=== PATIENT | male | born 1935 | race Caucasian/White ===

== ENCOUNTER → 2017-08-22 08:07 | Day surgery (SDC) | payer BC, MEDICARE ==
--- NOTE | 2017-08-09 21:04 | HP ---
CC: Dr. Patience Rasmussen; [facility] * ADMISSION HISTORY AND PHYSICAL: DATE OF ADMISSION: 08/22/17 ATTENDING SURGEON: Dr. Silverio Muniz * (DICTATED BY DANYEL HYATT) CHIEF COMPLAINT: Right inguinal hernia. HISTORY OF PRESENT ILLNESS: This is an 81, soon to be 82-year-old male, who in the past 3 months or so has noticed development of a right groin bulge. The patient states that he occasionally has some discomfort that radiates into the right scrotum. He does have chronic low back pain, which radiates into both groins and into lower extremities. An ultrasound had been performed, which showed bilateral inguinal hernias. He has not had any symptoms to suggest incarceration or strangulation. He was seen in the office by Dr. Muniz on 07/13/17, at which time exam showed a moderately sized tender, but reducible right inguinal hernia. There was a very small nontender and easily reducible left inguinal hernia. There were no testicular masses. The patient has also completed recent medical evaluation including echo and EKG (see attached from David Linton NP). The patient understands the recommendations, the indications for surgery, the risks, benefits and alternatives as well as the expected perioperative course. He would like to proceed as scheduled with open repair of right inguinal hernia with mesh. PAST MEDICAL HISTORY: 1. Chronic low back pain (degenerative disk disease). 2. Hypertension. 3. Type 2 diabetes. 4. Obesity. 5. Xpxo-rm-yzjndgom aortic stenosis. 6. Occasional tachyarrhythmia. 7. Bilateral knee pain. PREVIOUS SURGERY: Tonsillectomy remotely. CURRENT MEDICATIONS: 1. Metformin 500 mg daily. 2. Lisinopril 10 mg daily. 3. Ibuprofen 800 mg t.i.d. 4. Aspirin 81 mg p.r.n. tachyarrhythmia. 5. Glipizide extended release 10 mg daily. 6. Metoprolol extended release 25 mg daily. 7. Voltaren 1% topically daily p.r.n. for knee pain. DRUG ALLERGIES: None known. FAMILY HISTORY: Negative for anesthesia problems, bleeding or clotting disorders. SOCIAL HISTORY: The patient is . He is a retired school social worker. He smokes 1 to 2 cigars per day. He denies use of cigarettes. He drinks less than 1 drink per week. REVIEW OF SYSTEMS: General: No recent constitutional symptoms or acute illnesses other than described above. Cardiovascular: No history of chest pain , palpitations, OR, or angina. He was found recently to have a new murmur and recent echo shows aztp-bu-fxnwdgfh aortic stenosis. He is otherwise asymptomatic, see attached from David Linton. Respiratory: No chronic cough or shortness of breath. GI: No problems reported. : No problems reported other than erectile dysfunction. Endocrine: He is treated for type 2 diabetes. He states his most recent A1c was over 8 and metformin was recently added to his regimen. He does not do fingersticks. PHYSICAL EXAMINATION GENERAL: Well-nourished, obese male, in no acute distress. VITAL SIGNS: Height 5 feet 8 inches, weight 225 pounds, BMI 36.6, blood pressure 128/70, pulse 78, respirations 18. HEENT: Pupils equal, round, and reactive. EOMs intact. No conjunctival pallor. Oropharynx: Teeth in good repair. No intraoral lesions. NECK: No lymphadenopathy, thyromegaly, or masses. LUNGS: Clear to auscultation. No rales or wheezes. HEART: Regular rate and rhythm. There is a systolic murmur heard best in the right sternal border. ABDOMEN: Obese, soft, nontender to palpation. No palpable masses or organomegaly with the exception of the aforementioned hernias. GENITALIA: Not examined today. RECTAL: Not examined today. BACK: No spinous process or CVA tenderness. EXTREMITIES: No edema. NEUROLOGIC: Grossly intact. SKIN: Warm and dry. No suspicious rashes or lesions. IMPRESSION: Right inguinal hernia. PLAN: Open repair of right inguinal hernia with mesh. DANYEL HYATT [id number]/[facility] #: [id number] GENEVA
[~2017-08-22 08:07] MED LIST: Buffered Lidocaine 0.9% SYRIN* 5 ML/SYR SYRINGE INTRADERM ONE; Buffered Lidocaine 0.9% SYRIN* 5 ML/SYR SYRINGE ONE; ceFAZolin 2 GM PREMIX (*) 2 GM/50 ML BAG IVPB ONE
[2017-08-22 08:45] VITALS: BP 94/65
--- NOTE | 2017-08-22 18:37 | CONS ---
CC: MICHELLE El* [facility] MEDICINE CONSULTATION REPORT: DATE OF CONSULT: 08/22/17 PRIMARY CARE PROVIDER: MICHELLE El ATTENDING PHYSICIAN: Dr. Muniz. CONSULTING PHYSICIAN: Dr. Negro Stewart (dictation provided by Thao Miller NP) REASON FOR CONSULT: Supraventricular tachycardia in the immediate preoperative period. HISTORY OF PRESENT ILLNESS: Mr. Barakat is an 82-year-old male with a past medical history of diabetes, intermittent tachyarrhythmia, hypertension, and mild-to- moderate aortic stenosis, who presented to the hospital today for planned right inguinal hernia repair with Dr. Muniz. Please see the dictated H and P from Dr. Muniz for complete details. In brief, the patient reported that he had discomfort in the right groin and ultrasound showed bilateral inguinal hernias. The patient completed preoperative evaluation by nurse practitioner, David Linton, including an echocardiogram and EKG. Echocardiogram showed that the patient had new qidm-nh-hudztmob aortic stenosis, but otherwise his echo was unchanged and that he had an intact ejection fraction with no significant wall motion abnormalities. EKG showed a left bundle branch block, which was unchanged. Mr. Barakat states that last night, he was under stress and worried about going to surgery. He went out and had beer and pizza and then felt well thereafter. Today, he was not able to do his normal routine of having breakfast. He did take his metoprolol. His reports that they almost got into a car accident on the way into the hospital and therefore the patient arrived very stressed and hungry. He was found to be in tachyarrhythmia with a heart rate into the 150s. The patient states that this happens to him from whdp-la-wpir at home approximately once per month and that what he will do normally is drink some cold water and it will pass after about 30 minutes. He associates these previous episodes with stress. However, I will note that the patient states that he did not feel his heart rate was rapid and this was only found when he was attached to the telemetry monitors. It is likely based on this description that he is not aware of his arrhythmias. Hospital Medicine was asked to see the patient in consultation. By the time I came to see the patient, the patient's heart rate had spontaneously converted back down into the 70s with a sinus rhythm. PAST MEDICAL HISTORY: 1. Occasional tachyarrhythmia. 2. Chronic low back pain. 3. Hypertension. 4. Type 2 diabetes. 5. Obesity. 6. Dibx-nw-jbrbzjoz aortic stenosis. 7. Bilateral knee pain. PAST SURGICAL HISTORY: Tonsillectomy. MEDICATIONS: 1. Metformin 500 mg p.o. daily. 2. Lisinopril 10 mg p.o. daily. 3. Ibuprofen 800 mg p.o. t.i.d. 4. Aspirin 81 mg p.r.n. 5. Glipizide 10 mg p.o. daily. 6. Metoprolol ER 25 mg daily. 7. Voltaren 1% topically daily p.r.n. for knee pain. ALLERGIES: No known drug allergies. FAMILY HISTORY: Reviewed and noncontributory. SOCIAL HISTORY: The patient is . He is a retired sanitation worker. He smokes 1 to 2 cigars per day. He does not smoke cigarettes. He drinks about 1 drink per week. States he drank beer last night. His is the healthcare proxy. REVIEW OF SYSTEMS: A 14-point review of systems was completed with Mr. Barakat and all those not mentioned above were negative. PHYSICAL EXAM: Vital Signs: The patient's heart rate 170, blood pressure 97/48 , respiratory rate 18, O2 saturation 98% on room air. General: Mr. Barakat is sitting up in the bed. He is in no acute distress. Neuro: He is alert. He is oriented x3. He moves all extremities equally. There is no facial asymmetry or focal weakness. Extraocular movements are intact. Heart: S1, S2 with mild systolic murmur at the sternal border. Lungs are clear to auscultation bilaterally with no accessory muscle use and good aeration. Abdomen is soft and nontender with bowel sounds positive x4. Extremities: No cyanosis or edema. Skin is intact. DIAGNOSTIC STUDIES/LAB DATA: Preoperatively WBC 5.2, hemoglobin 14.6, hematocrit 43, platelet count 175. Sodium 138, potassium 4.1, chloride 105, serum bicarbonate 27, BUN 19, creatinine 0.85, and glucose 154. EKG shows left bundle branch block with a heart rate about 140. On my arrival, the patient is back into sinus rhythm with the left bundle branch block with heart rate about 70. ASSESSMENT AND PLAN: Mr. Barakat is an 82-year-old male with past medical history of known tachyarrhythmia, exzg-wr-zeclvvzi aortic stenosis, hypertension , diabetes, who presents today to the hospital for an elective repair of right inguinal hernia, found to be in supraventricular tachycardia with heart rate of about 150 on arrival. Our recommendations are as follows: 1. Supraventricular tachycardia: It is clear from the patient's description that he is not aware of his rapid heart rate at times as evidenced by the fact that he did not know that today when he arrived. He thinks he goes into this rhythm about once per month. I think the patient would benefit greatly from a loop recorder to monitor his heart rhythm and to add and adjust any medications as possible to help control the rhythm, both for his long-term health and also, so that he can proceed with his inguinal hernia repair in the future. He has no evidence of atrial fibrillation that I have seen, therefore anticoagulation is not indicated. I considered increasing his metoprolol but his blood pressure is running systolically in the 90s and I think that any adjustment to medication will have to be in consultation with Cardiology and review of any further outpatient monitoring. 2. Diabetes. Continue home medication. 3. Right inguinal hernia repair. Spoke with Dr. Muniz and the patient's surgery is postponed. 4. Hypertension. Continue metoprolol and lisinopril. 5. Code status is full code. 6. Disposition: To home. TIME SPENT: Approximately 40 minutes was spent in the consultation of this patient with more than half the time was spent with the patient at the bedside reviewing the events leading up to this hospitalization, performing the physical examination, and reviewing the plan of care. THAO MILLER NP [id number]/[facility] #: [id number] GENEVA
== END | disposition home or self-care (01) ==
LOC: OR 08:07
PROVIDERS: ATTEND Surgery
DX: K40.90 Unilateral inguinal hernia, without obstruction or gangrene, not specified as recurrent (principal); I47.1 Supraventricular tachycardia; Z53.09 Procedure and treatment not carried out because of other contraindication; E11.9 Type 2 diabetes mellitus without complications; Z79.84 Long term (current) use of oral hypoglycemic drugs; F17.290 Nicotine dependence, other tobacco product, uncomplicated; I10 Essential (primary) hypertension; I35.0 Nonrheumatic aortic (valve) stenosis
CPT/HCPCS: 93005; J0690

== ENCOUNTER 2018-06-24 08:30 | Inpatient (IN) | payer MEDICARE, BC ==
--- NOTE | 2018-06-24 09:06 | ED ---
Abdominal Pain/Male - HPI Summary HPI Summary: This patient is a 82 year old M presenting to [facility] accompanied by accompanied by his with a chief complaint of left sided abdominal pain radiating to left flank since 06/22/18 with no BM. Patient was sent here by PCP for further work-up. Upon arrival patient was found to be in SVT. Patient denies current symptoms, other than feeling generally unwell. reports a history of a similar rhythm. She states he was meant to have surgery for a hernia repair in [place] but he was found in a similar rhythm prior to surgery. Patient was recently evaluated by Dr. Granados, kd recommended cardiac ablation; however he has not had one yet. Denies current vomiting. 81mg of ASA daily. PMHx of hernias and NIDDM. Denies PMHx of CHF and ME. - History of Current Complaint Chief Complaint: EDAbdPain Stated Complaint: ABD PAIN Hx Obtained From: Patient Onset/Duration: Lasting Days Timing: Constant Severity Currently: Severe Pain Intensity: 10 Pain Scale Used: 0-10 Numeric Location: Other - left sided Radiates: Yes Associated Signs And Symptoms: Positive: Constipation, Other - SVT. Negative: Chest Pain, Vomiting - Allergies/Home Medications Allergies/Adverse Reactions: Allergies Allergy/AdvReac Type Severity Reaction Status Date / Time No Known Allergies Allergy Verified 06/24/18 08:32 Home Medications: Home Medications Aspirin 81 mg CHEW TAB* 81 mg PO DAILY 06/24/18 [History Confirmed 06/24/18] PMH/Surg Hx/FS Hx/Imm Hx Endocrine/Hematology History: Reports: Hx Diabetes - type2 Cardiovascular History: Reports: Hx Hypertension - metoprolol and 10mg of lisinopril Denies: Hx Pacemaker/ICD History: Denies: Hx Renal Disease Sensory History: Reports: Hx Contacts or Glasses Denies: Hx Hearing Aid Opthamlomology History: Reports: Hx Contacts or Glasses Psychiatric History: Denies: Hx Panic Disorder - Surgical History Surgery Procedure, Year, and Place: TONSILS as a child Hx Anesthesia Reactions: No Infectious Disease History: No Infectious Disease History: Denies: Traveled Outside the [place] in Last 30 Days - Family History Known Family History: Positive: Hypertension - Social History Alcohol Use: Rare Substance Use Type: Reports: None Smoking Status (MU): Current Some Day Smoker Amount Used/How Often: smoke cigars - doesn't inhale just puffs,1 a day, smoked them for 65 years Have You Smoked in the Last Year: Yes Review of Systems Negative: Chest Pain Negative: Shortness Of Breath Positive: Abdominal Pain, Other - constipation. Negative: Vomiting All Other Systems Reviewed And Are Negative: Yes Physical Exam - Summary Physical Exam Summary: GENERAL: Patient is a well developed and nourished male who is lying comfortable in the stretcher. Patient is not in any acute respiratory distress. HEAD AND FACE: Normocephalic EYES: PERRLA, EOMI x 2. EARS: Hearing grossly intact. MOUTH: Oropharynx within normal limits. NECK: Supple, trachea is midline, no adenopathy, no JVD, no carotid bruit. CHEST: Symmetric, diffuse tenderness at palpation worse over epigastric area LUNGS: Clear to auscultation bilaterally. No wheezing or crackles. CVS: Tachycardic rate and regular rhythm, S1 and S2 present, no murmurs or gallops appreciated. ABDOMEN: Soft, diffuse epigastric tenderness. Bowel sounds are normal. No abdominal abnormal pulsations. EXTREMITIES: Full ROM in all major joints, no edema, no cyanosis or clubbing. NEURO: Alert and oriented x 3. No acute neurological deficits. Speech is normal and follows commands. SKIN: Dry and warm Triage Information Reviewed: Yes Vital Signs On Initial Exam: Initial Vitals Temp Pulse Resp BP Pulse Ox 97.1 F 65 22 92/58 98 06/24/18 08:32 06/24/18 08:32 06/24/18 08:32 06/24/18 08:32 06/24/18 08:32 Vital Signs Reviewed: Yes Diagnostics - Vital Signs Vital Signs Temp Pulse Resp BP Pulse Ox 06/24/18 08:32 97.1 F 65 22 92/58 98 - Laboratory Result Diagrams: 06/25/18 05:13 06/25/18 05:14 Lab Statement: Any lab studies that have been ordered have been reviewed, and results considered in the medical decision making process. - Radiology CXR Radiology Interpretation Completed By: Radiologist - #. Minimal linear atelectasis at the LEFT lung base. The lungs and pleural spaces are otherwise grossly clear. #. The heart, pulmonary vasculature, and mediastinal contours are unremarkable accounting for supine technique. ED Physician has reviewed this report. - CT A/P CT Interpretation Completed By: Radiologist - #. Mild inflammatory change at the tail the pancreas; correlate with clinical and laboratory assessment for acute pancreatitis. #. Mild colonic diverticulosis without findings of acute diverticulitis. #. Normal appendix documented. #. Moderate size bilateral small bowel containing direct inguinal hernias ED Physician has reviewed this report. - EKG 0902 Cardiac Rate: Tachycardia - 166 BPM EKG Rhythm: SVT EKG Interpretation: LBBB, which is old 1003 Cardiac Rate: Tachycardia - 105 BPM EKG Rhythm: Sinus Tachycardia EKG Interpretation: repeated after 6 of adenosine, old LBB 1158 Cardiac Rate: NL - 66 BPM EKG Rhythm: Sinus Rhythm EKG Interpretation: LBBB Abdominal Pain Fem Course/Dx - Course Course Of Treatment: 82 year old M presenting to [facility] accompanied by accompanied by his with a chief complaint of left sided abdominal pain radiating to left flank since 06/22/18 with no BM. Upon arrival patient was found to be in SVT. Patient denies current symptoms, other than feeling generally unwell. reports a history of a similar rhythm. First EKG reveals SVT at a rate of 166BPM. Dr. Granados was paged and will come to the ED. Patient was given 6mg of adenosine. Second EKG reveals tachycardia at a rate of 106 BPM , after adenosine was administered. Patient developed chest pain at 11:57; a third EKG was done revealing sinus rhythm of 66BPM. All EKGs reveal LBBB which is seen on prior EKGs. Patient is given 10mg of Cardizem, Fentanyl, Magnesium Sulfate, Versed, and 2L of fluids. Bloodwork is unremarkable. CXR reveals, " # . Minimal linear atelectasis at the LEFT lung base. The lungs and pleural spaces are otherwise grossly clear. #. The heart, pulmonary vasculature, and mediastinal contours are unremarkable accounting for supine technique.". A CT A /P reveals, "#. Mild inflammatory change at the tail the pancreas; correlate with clinical and laboratory assessment for acute pancreatitis. #. Mild colonic diverticulosis without findings of acute diverticulitis. #. Normal appendix documented. #. Moderate size bilateral small bowel containing direct inguinal hernias ". Case discussed with hospitalist; Dr. Austin, hospitalist, who accepts patient fo radmission at 1332. I discussed results with patient. The patient agrees with this plan. - Diagnoses Provider Diagnoses: SVT (supraventricular tachycardia), Abdominal pain - Provider Notifications Discussed Care Of Patient With: Kiara Granados - cariology Time Discussed With Above Provider: 09:25 Instructed by Provider To: Will See In ED - Critical Care Time Critical Care Time: 75-104 min Discharge - Sign-Out/Discharge Documenting (check all that apply): Patient Departure - admit - Discharge Plan Condition: Stable Disposition: ADMITTED TO [facility] - Billing Disposition and Condition Condition: STABLE Disposition: Admitted to [facility] - Attestation Statements Document Initiated by Scribe: Yes Documenting Scribe: Corinna Graham Provider For Whom Gianfrancoibe is Documenting (Include Credential): Jens Emerson MD Scribe Attestation: Corinna Garcia, scribed for Jens Emerson MD on 06/25/18 at 1126. Scribe Documentation Reviewed: Yes Provider Attestation: The documentation as recorded by the gianfrancoibeCorinna accurately reflects the service I personally performed and the decisions made by Jens kunz MD
[2018-06-24] MEDS ORDERED: Diltiazem IV* 5 MG/ML 5 ML VIAL (for loading dose/IV Push) (25 MG) ONE (09:21)
[2018-06-24] MEDS ORDERED: Midazolam* 1 MG/ML 5 ML VIAL (5 MG) ONE (09:38)
[2018-06-24] MEDS ORDERED: fentaNYL* 50 MCG/ML 2 ML VIAL (100 MCG VIAL) ONE (09:38)
[2018-06-24 09:45] LABS: ABS Basophils 0 10^3/ul (0-0.2); ABS Eosinophils 0.2 10^3/ul (0-0.6); ABS Lymphocytes 2.6 10^3/ul (1.0-4.8); ABS Monocytes 1.2 10^3/ul (0-0.8); ABS Neutrophils 6.5 10^3/ul (1.5-7.7); ABS Nucleated RBC 0 10^3/ul; Eosinophil % 1.6 % (0-6); Hematocrit 44 % (42-52); Hemoglobin 14.8 g/dl (14.0-18.0); Lymphocyte % 24.9 % (25-47); Mean Corpuscular HGB Conc 34 g/dl (31-36); Mean Corpuscular Hemoglobin 31 pg (27-31); Mean Corpuscular Volume 90 fL (80-94); Mean Platelet Volume 8.8 um3 (7.4-10.4); Nucleated Red Blood Cells % 0; Platelet Count 212 10^3/ul (150-450); Red Blood Count 4.81 10^6/ul (4.00-5.40); Red Cell Distribution Width 13 % (10.5-15); White Blood Count 10.5 10^3/ul (3.5-10.8)
[2018-06-24 09:54] LABS: INR 1.06 (0.77-1.02)
[2018-06-24] MEDS ORDERED: Adenosine* 3 MG/ML VIAL ONE (09:55)
[2018-06-24] MEDS ORDERED: fentaNYL* 50 MCG/ML 2 ML VIAL (100 MCG VIAL) IV SLOW PU ONE (10:09)
[2018-06-24] MEDS ORDERED: Diltiazem IV VIAL* 5 MG/ML 10 ML VIAL IV SLOW PU ONE (10:09)
[2018-06-24] MEDS ORDERED: Adenosine* 3 MG/ML VIAL IV PUSH ONE (10:09)
[2018-06-24] MEDS ORDERED: Midazolam* 1 MG/ML 5 ML VIAL (5 MG) IV ONE (10:12)
[2018-06-24] MEDS ORDERED: Magnesium Sulfate IV* 2 GM in NS 0.9% 100 ML* 100 ML IV ONE (10:14)
[2018-06-24] MEDS ORDERED: NS 0.9% 1000 ML* 1,000 ML IV ONE (10:15)
--- NOTE | 2018-06-24 10:37 | RAD ---
Indication: Abdominal pain for 3 days. Comparison: April 16, 2008 Technique: Supine AP chest 1020 hours REPORT AND IMPRESSION: #. Minimal linear atelectasis at the LEFT lung base. The lungs and pleural spaces are otherwise grossly clear. #. The heart, pulmonary vasculature, and mediastinal contours are unremarkable accounting for supine technique.
[2018-06-24] MEDS ORDERED: Iodixanol* (CONTRAST) 320 MG/ML 100 ML SDV IV ONE (11:54)
[2018-06-24] MEDS ORDERED: Magnesium Sulfate 2 GM IV* 2 GM/50 ML BAG IVPB ONE (12:00)
--- NOTE | 2018-06-24 13:13 | RAD ---
INDICATION: Abdominal pain. Diabetic. COMPARISON: No relevant prior exams available on the [facility] PACS for comparison. TECHNIQUE: Multidetector CT images were obtained from the lung bases to the ischial tuberosities with 125 mL Visipaque 320 IV contrast. No oral contrast administered. Multiplanar reformation. REPORT: VISUALIZED INFERIOR THORAX: Cardiomegaly and mild bibasilar atelectasis. Negative for pleural effusions. LIVER / GALLBLADDER / PANCREAS / SPLEEN: Decreased density of the liver consistent with fatty infiltration. Negative for focal liver lesions or biliary dilatation. Unremarkable CT appearance of the gallbladder. Moderately atrophic pancreas. Mild peripancreatic edema at the tail. Negative for presence of a loculated peripancreatic fluid collection. Unremarkable spleen. ALIMENTARY TRACT: Negative for CT abnormality of the upper GI, small bowel, or retrocecal appendix. Mild diverticulosis at the descending and sigmoid: Segments without findings of acute diverticulitis. Negative for ascites or free air. Moderate size bilateral small bowel containing direct inguinal hernias without inflammatory change or resulting bowel obstruction. MESENTERIC: Unremarkable. ADRENAL / GENITOURINARY: 1.9 x 2.2 cm RIGHT adrenal nodule measures denser than specific for a benign lipid rich adenoma however presence of IV contrast limits assessment. Unremarkable LEFT adrenal gland. Small cortical cyst at the lower pole of the LEFT kidney. Negative for suspicious renal lesions or hydronephrosis. Symmetric enhancement of the kidneys. Unremarkable nondilated ureters and partially distended urinary bladder. Symmetric seminal vesicles. RETROPERITONEAL: Top normal 1 cm short axis LEFT external iliac lymph node. Negative for lymphadenopathy. VASCULAR: Mild atherosclerotic plaque of normal diameter abdominal aorta and iliac arteries. Physiologic partial distention of the IVC. BONES: Negative for suspicious focal osseous lesions. Polyarticular degenerative arthropathy. SOFT TISSUE: Unremarkable. IMPRESSION: #. Mild inflammatory change at the tail the pancreas; correlate with clinical and laboratory assessment for acute pancreatitis. #. Mild colonic diverticulosis without findings of acute diverticulitis. #. Normal appendix documented. #. Moderate size bilateral small bowel containing direct inguinal hernias without inflammatory change or resulting bowel obstruction. #. 2.2 cm nonspecific RIGHT adrenal nodule for which 3 month follow-up noncontrast CT is suggested for reassessment.
[2018-06-24] MEDS ORDERED: Ondansetron INJ* 2 MG/ML VIAL IV PRN (14:27)
[2018-06-24] MEDS ORDERED: NS 0.9% 1000 ML* 1,000 ML IV SCH (14:45)
[2018-06-24] MEDS ORDERED: Metoprolol Tartrate IV* 1 MG/ML 5 ML VIAL IV PRN (15:11)
[2018-06-24] MEDS: Morphine INJ* 2 MG/ML 1 ML SYRINGE (TWO MG - NEW SYRINGE VERSION) IV PRN (16:30)
[2018-06-24] MEDS: Miconazole TOPICAL CREAM 2%* 30 GM TOPICAL SCH (16:31)
--- NOTE | 2018-06-24 19:40 | HP ---
CC: David Linton NP; Dr. Kiara Granados * ADMISSION HISTORY AND PHYSICAL: DATE OF ADMISSION: 06/24/18. PRIMARY CARE PROVIDER: David Linton NP. MY ATTENDING WHILE IN THE HOSPITAL: Dr. Annia Medina.* (DICTATED BY DANYEL RENTERIA) OUTPATIENT COAL OR ORE CONTROLLER: Dr. Kiara Granados. CHIEF COMPLAINT: Abdominal pain x3 days. HISTORY OF PRESENT ILLNESS: Mr. Barakat is an 82-year-old male with a past medical history significant for paroxysmal SVT; hypertension; diabetes mellitus , type 2; obesity; bilateral direct inguinal hernias, who presents to the emergency department with pain in his lower abdomen, which radiates up to his upper back that has been going on since , night after he ate a large dinner of steak, shrimp, and baked potatoes. The patient has generally poor diet. The patient has never had pain like this before. The patient has not had bowel movements since then. The patient has had no nausea or vomiting, but has had significant gas and has felt that his pain is improved with belching. The patient states the pain was 10/10 at its worse and only diminished to 5/10 after receiving fentanyl in the emergency department. The patient describes the pain as aching. The patient states that it was constant before coming to the emergency department, did not fluctuate except for slight improvements when belching. The patient has not taken anything for it. The patient is a bit opposed to pain medications as he feels that it masks his pain. The patient in the emergency department was found to be in SVT, which he has a known history of. The patient's states that he had been having episodes where he lost his color and felt somewhat off over the past several days, which are consistent with previous times when he has been found to be in SVT. The patient has been able to terminate these by resting and drinking a glass of cold water. The patient denies shortness of breath with these episodes. The patient also has many other episodes of tachycardia that has been discovered when he is entirely asymptomatic. The patient has not had any sick contacts. No recent changes to his medications. No previous blood in his stool. No history of diverticulitis. The patient does not drink alcohol. The patient states that his lipid profiles have generally been good. The patient's denies any urinary symptoms including blood in his urine, pain with urination, frequency of urination, cloudiness of his urine. The patient has no history of kidney stones. The patient does not check his blood sugars and have not for several months due to tenderness in his fingers. The patient has not had any recent changes to his medications. The patient used to taken ibuprofen 800 mg 3 times a day, but stopped approximately 3 months ago. The patient has chronic low back pain with radiation into his legs, which is due to according to the patient spinal stenosis that is tolerable, but consistently there. The patient has had a rash in his groin that developed 3 weeks ago, that has been often responsive to hydrocortisone cream and it is frequently itching. The patient has been previously evaluated by an commercial diver in [place], who recommended an EP evaluation of possible ablation for his SVT, but the patient declined for financial reasons. The patient is noncompliant with his diet and his main priorities in life he states are smoking his cigars and going to the [employer]. The patient in the emergency department was seen in consultation by Dr. Kiara Granados, who performed a chemical cardioversion with diltiazem and adenosine and the patient is maintaining his sinus rhythm at this time. The patient had an episode of chest pain while in the emergency department, which resolved with belching. The patient is maintained on metoprolol. The patient had low magnesium. The patient had a CT scan of his abdomen which showed no gallbladder pathology, however, slight inflammation of the tail of the pancreas and no issues with his inguinal hernias. The patient has an elevated lipase. Due to concern for SVT, pancreatitis and pain, the patient will be admitted to the hospital for observation. PAST MEDICAL HISTORY: SVT, not believed to be atrial fib; low back pain due to spinal stenosis; hypertension; diabetes mellitus, non-insulin dependent; obesity ; aortic stenosis; bilateral direct inguinal hernias. PAST SURGICAL HISTORY: Tonsillectomy. MEDICATIONS: 1. Metformin 500 mg p.o. q.a.m. 2. Lisinopril p.o. daily. 3. Metoprolol succinate 25 mg p.o. q.a.m. 3. Glipizide 10 mg p.o. q.a.m. 4. Aspirin 81 mg p.o. daily. 5. Voltaren gel 1% as needed for knee pain. 6. Multivitamin. 7. Vitamin B12, unknown dose. ALLERGIES: No known drug allergies. FAMILY HISTORY: The patient's mother had history of tachycardia and of complications of CHF. The patient had one sister with liver cancer and another sister with breast and ovarian cancer as well as diabetes. The patient has a brother with atrial fibrillation, pacemaker and hypertension. The patient has a sister with dementia. The patient has two daughters with no health problems. SOCIAL HISTORY: The patient has smoked cigars for 50 years intermittently and states he has not inhaled. The patient smoked briefly cigarettes when he was much younger. The patient does not drink alcohol. The patient never abuse alcohol. The patient denies illicit drug use. The patient used to work for [employer] of 42 years and is now retired. The patient is , lives with his , has 2 daughters. The patient would like his surrogate decision maker to be his , Beatriz Barakat and his daughter, Kait Barakat. REVIEW OF SYSTEMS: A 14-point review of systems was reviewed and negative except as above. PHYSICAL EXAMINATION GENERAL: The patient is an 82-year-old male, who appears stated age and sitting comfortably in bed, in no acute distress. VITAL SIGNS: At the time of evaluation, temperature 97.1, pulse rate 68, respiratory rate 19, blood pressure 124/79. The patient upon arrival to the emergency department had a heart rate of 168. HEENT: Head: Normocephalic, atraumatic. Sclerae anicteric. No conjunctival injection. Nasal mucosa moist. Oral mucosa moist. No pharyngeal erythema, discharge or exudate. NECK: Supple, nontender. No lymphadenopathy. No carotid bruits auscultated. No JVD. RESPIRATORY: Clear to auscultation bilaterally, just slight inspiratory crackles heard at the bilateral lower lobes. Good air exchange bilaterally. CARDIAC: Regular rate and rhythm, grade 3/6 systolic ejection murmur heard best at the right upper sternal border. Pulses are 2+ in bilateral dorsalis pedis, posterior tibialis, and radial areas. No bilateral lower extremity edema noted. ABDOMEN: Soft, tender to palpation in the left lower quadrant as well as in the periumbilical area. Bowel sounds hypoactive of normal quality. Hernias not palpable in the groin. No hepatosplenomegaly. Negative Escalante's sign. No hepatojugular reflux. GENITOURINARY: No suprapubic or CVA tenderness. NEURO: Cranial nerves II through XII are intact. No focal deficits. Alert and oriented x3. PSYCHIATRIC: Pleasant and cooperative. SKIN: The patient has a rash consistent with tinea corporis in his groin with scaling, borders without satellite lesions. The patient has no other rash. DIAGNOSTIC STUDIES/LAB DATA: White blood cell count 10.0, hemoglobin 14.8, hematocrit 44, platelet count 212. INR 1.06, APTT is 32.6. Sodium 134, potassium 4.1, chloride 102, carbon dioxide 23, anion gap 9, BUN 17, creatinine 1.15, glucose 208, lactic acid 1.8, calcium 9.4, magnesium 1.6. Bilirubin 0.7, AST 16, ALT 19, alkaline phosphatase 68. Troponin I 0.01 x2. BNP 79. Total protein 7.0, albumin 4.0, globulin 3.0, lipase 280. TSH 1.51, thyroxine 8.66. Studies done: Electrocardiogram from 06/24/18, shows tachycardia, no P-waves visible, rate of 166, QTc 508, had inconsistent left bundle branch present with peaked T-waves and elevated ST segments with T-wave inversions and depressed ST segments in I and aVL, left axis deviation. Repeat EKG, 1 hour later, shows normal sinus rhythm, similar QRS morphology, P- waves present with borderline TN interval prolongation, QTc of 492, rate of 105. Repeat EKG 2 hours after that shows, normal sinus rhythm consistent QRS morphology, rate of 66, QTc 490 and no other significant changes. That one was associated with chest pain. The patient has a known left bundle branch block. Chest x-ray from 06/24/18, read as minimal atelectasis of the lung base, lungs, and pleural spaces are otherwise grossly clear. Pulmonary vascular and mediastinal contours are unremarkable accounting for supine technique. Abdomen and pelvis CT read as mild inflammatory changes to the tail of pancreas correlate with clinical and laboratory assessment for acute pancreatitis, mild colonic diverticulosis without findings of acute diverticulitis, normal appendix , moderate sized bilateral small-bowel containing direct inguinal hernias without inflammatory change or resulting bowel obstruction, 2.2-cm nonspecific right adrenal nodule for which 3 months followup with noncontrast CT is suggested for reassessment. ASSESSMENT AND PLAN/IMPRESSION: Mr. Barakat is an 82-year-old male with past medical history significant for hypertension, hyperlipidemia, paroxysmal supraventricular tachycardia, aortic stenosis, bilateral inguinal hernias, who presents to the emergency department with 3 days of abdominal pain, intermittent SVT as well as extreme supraventricular tachycardia while in the emergency department with chemical cardioversion. The patient was found to have elevated lipase consistent with pancreatitis likely provoking his supraventricular tachycardia. The patient will be admitted to the hospital for a conservative pancreatitis treatment including pain control, bowel rest and fluids. The patient will be seen in consultation by Cardiology and will be maintained on his home regimen for his supraventricular tachycardia. 1. Mild pancreatitis. The cause of patient's pancreatitis is unknown, however , given temporal relationship with the high-fat meal, it is possibly related to gallstone. The patient has no gallstone visible on his abdomen and pelvis CT nor pericholecystic inflammatory change. The patient will have a gallbladder ultrasound to assess for function and other signs of acute cholecystitis. The patient will have conservative treatment including fluids, pain control and bowel rest. The patient will have lipid profile to assess for hypertriglyceridemia. The patient does not have history of alcohol abuse. The patient will have repeat lipase in the morning. None of the patient's medications are known for causing pancreatitis. The patient if no alternative explanation is found consideration should be made for surgical referral outpatient for cholecystectomy if this is believed to be the cause of the patient's pancreatitis. 2. Supraventricular tachycardia. The patient is currently in normal sinus rhythm. The patient was converted with adenosine. The patient is usually able to convert with vagal maneuvers. The patient will be continued on metoprolol and monitored on telemetry. This has been discussed with Dr. Kiara Granados. The patient will have IV metoprolol available for tachycardia. The patient will have troponins cycled and a repeat EKG in the morning. The patient's left bundle-branch block is new. The patient does not have any issues with cardiac sounding chest pain. The patient should followup with outpatient commercial diver for a possible EP as well as with Dr. Granados for consideration for antiarrhythmic medication, which may also be considered inpatient if the patient has uncontrollable supraventricular tachycardia. 3. Diabetes mellitus. The patient will be continued on his metformin as well at an increased dose as he refuses to have fingersticks while in the hospital. The patient will not be continued on his glipizide due to n.p.o. state and risk for hyperglycemia. 4. Hypertension. The patient will be continued on lisinopril and metoprolol. The patient is currently normotensive. 5. Low back pain. The patient will have pain control with morphine and oxycodone for his back pain as well as his abdominal pain. 6. Bilateral inguinal hernias. This should be followed outpatient. CT scan shows no inflammatory change or blockage. 7. DVT prophylaxis. The patient will have heparin subcu and will be encouraged to ambulate frequently. 8. FEN. The patient will be n.p.o. with fluids 75 mL an hour due to pancreatitis. 9. Code status. The patient would like to be a full code. 10. Disposition. The patient will be admitted to observation. TIME SPENT: Approximately 90 minutes was spent on this admission of this patient, 60 of which was spent [id number] with the patient obtaining history and physical and discussing treatment plan. The plan was discussed with my attending, Dr. Shaun Medina, and she is in agreement. DANYEL RENTERIA [id number]/[facility] #: [id number] [place]
--- NOTE | 2018-06-24 20:29 | CARD ---
CHEMICAL CARDIOVERSION NOTE: DATE OF PROCEDURE: 06/24/18 PROCEDURE: Adenocard infusion with cardioversion. PREPROCEDURE DIAGNOSES: EKG showing supraventricular tachycardia with a left bundle branch aberrancy, very irregular and suggestive of supraventricular tachycardia. The patient was hypotensive with systolic pressure 60 to 90. INDICATIONS: The indication was to determine if the patient was in SVT versus atrial flutter as he is unaware of the rhythm and has had abdominal pain since . It was uncertain how long he had been in the rhythm and therefore safety for electrical cardioversion w/o UMA guidance a concern. The indications, risks, and benefits of Adenocard infusion including the risk of AV block and brief discomfort from the side effects of the medication were discussed with the patient and his and they were amenable to proceeding. DESCRIPTION OF PROCEDURE: The patient had AP patches on. He received 6 mg of Adenocard infused with rapid flush and he went from either ventricular tachycardia with left bundle branch block to normal sinus rhythm and mild sinus bradycardia and then went into a sinus tachycardia with a left bundle branch block. The patient did not feel poorly and he was hemodynamically stable throughout. CONCLUSION: Supraventricular tachycardia with successful conversion to normal sinus rhythm with 6 mg Adenocard. Suggests AV nakia dependant SVT. No complications. [id number]/[facility] #: [id number] [facility]
[2018-06-24] MEDS ORDERED: metFORMIN* 500 MG TAB PO SCH (21:00)
[2018-06-24] MEDS: oxyCODONE TAB* 5 MG TAB PO PRN (21:27)
[2018-06-24] MEDS: Heparin VIAL(*) 5000 UNITS/ML VIAL (FIVE THOUSAND) SUBCUT SCH (21:27)
[2018-06-24] MEDS: Acetaminophen TAB* 325 MG PO PRN (21:27)
[2018-06-25 02:26] LABS: Urine Appearance Clear; Urine Blood Negative (Negative); Urine Color Yellow; Urine Ketones 1+ (Negative); Urine Protein Negative (Negative); Urine Specific Gravity 1.055 (1.010-1.030); Urine Urobilinogen Negative (Negative)
[2018-06-25] MEDS: Morphine INJ* 2 MG/ML 1 ML SYRINGE (TWO MG - NEW SYRINGE VERSION) IV PRN ×2 (02:28→18:59)
[2018-06-25] MEDS: Heparin VIAL(*) 5000 UNITS/ML VIAL (FIVE THOUSAND) SUBCUT SCH ×3 (05:14→22:29)
[2018-06-25 05:32] LABS: ABS Basophils 0 10^3/ul (0-0.2); ABS Eosinophils 0.1 10^3/ul (0-0.6); ABS Lymphocytes 1.7 10^3/ul (1.0-4.8); ABS Monocytes 0.9 10^3/ul (0-0.8); ABS Neutrophils 5.3 10^3/ul (1.5-7.7); ABS Nucleated RBC 0 10^3/ul; Eosinophil % 1.3 % (0-6); Hematocrit 38 % (42-52); Hemoglobin 12.7 g/dl (14.0-18.0); Lymphocyte % 21.1 % (25-47); Mean Corpuscular HGB Conc 34 g/dl (31-36); Mean Corpuscular Hemoglobin 31 pg (27-31); Mean Corpuscular Volume 90 fL (80-94); Mean Platelet Volume 8.5 um3 (7.4-10.4); Nucleated Red Blood Cells % 0; Platelet Count 157 10^3/ul (150-450); Red Blood Count 4.15 10^6/ul (4.00-5.40); Red Cell Distribution Width 13 % (10.5-15)
[2018-06-25 05:50] LABS: EGFR Non-African American 88.9 (>60)
[2018-06-25] MEDS: oxyCODONE TAB* 5 MG TAB PO PRN (06:00)
[2018-06-25] MEDS: Acetaminophen TAB* 325 MG PO PRN (06:01)
[2018-06-25] MEDS ORDERED: Simethicone TAB* 80 MG TAB.CHEW PO ONE (06:10)
--- NOTE | 2018-06-25 07:55 | PN ---
Subjective Date of Service: 06/25/18 Interval History: Mr. Barakat continues to complain of left lower quadrant abdominal pain. He had one bowel movement last evening, described as formed and brown. He denies nausea or vomiting. He denies upper abdominal pain. He further denies chest pain, SOB, or palpitations. Objective Active Medications: Acetaminophen (Tylenol Tab*) 650 mg PO Q6H PRN Aspirin (Aspirin 81 Mg Chew Tab*) 81 mg PO DAILY [facility] Heparin Sodium (Porcine) (Heparin Vial(*)) 5,000 units SUBCUT Q8HR IMER Lisinopril (Prinivil Tab*) 10 mg PO QAM IMER Metoprolol Succinate (Toprol Xl Tab*) 25 mg PO QAM IMER Metoprolol Tartrate (Lopressor Iv*) 5 mg IV Q5M PRN Miconazole Nitrate (Monistat 2%*) 1 applic TOPICAL DAILY IMER Morphine Sulfate (Morphine Inj ((Syringe))*) 2 mg IV Q4H PRN Ondansetron HCl (Zofran Inj*) 4 mg IV Q6H PRN Oxycodone HCl (Roxycodone Tab*) 5 mg PO Q6H PRN Vital Signs: Temp Pulse Resp BP Pulse Ox 98.1 F 74 18 105/49 92 06/25/18 04:00 06/25/18 04:00 06/25/18 06:00 06/25/18 04:00 06/25/18 04:00 Oxygen Devices in Use Now: None Appearance: Male lying in bed in NAD Eyes: No Scleral Icterus Ears/Nose/Mouth/Throat: Mucous Membranes Moist Neck: Trachea Midline Respiratory: Symmetrical Chest Expansion and Respiratory Effort, Clear to Auscultation Cardiovascular: NL Sounds; No Murmurs; No JVD, No Edema Abdominal: - - Soft, tender to palpation in left lower quadrant, no rebound, BS + Lymphatic: No Cervical Adenopathy Extremities: No Edema Skin: - - Rash to left groin, erythematous patch on proximal left groin with central clearing, no vesicles Neurological: Alert and Oriented x 3, NL Muscle Strength and Tone Nutrition: - - NPO Result Diagrams: 06/25/18 05:13 06/25/18 05:14 Assess/Plan/Problems-Billing Assessment: Mr. Barakat is an 82 yo M with a PMH of SVT, HTN, DM, and aortic stenosis who was admitted on 06/24/18 with abdominal pain with concern for pancreatitis as well as SVT s/p chemical cardioversion. - Patient Problems (1) SVT (supraventricular tachycardia) Comment: - Resolved, has history of same. - Patient to follow up with Dr. Granados outpatient for consideration of EP follow up. (2) Pancreatitis Comment: - Persistent left lower quadrant pain this AM, no diverticulitis noted on CT abd. Question if referred pain from pancreatitis given positive lipase and CT showing inflammatory change at the tail of the pancreas, though is unusual presentation. - Lipase normal this AM. GB US read pending. (3) Hypertension Comment: - SBP 100s. - Continue lisinopril and metoprolol. (4) Diabetes Comment: - BG well controlled. - Hold metformin and glipizide. (5) Adrenal nodule Comment: - Incidental finding, recommend follow up in [address] (6) DVT prophylaxis Comment: - Heparin SQ. (7) Full code status Comment: Status and Disposition: Inpatient. Anticipate discharge to home when medically stable.
[2018-06-25] MEDS ORDERED: metFORMIN* 500 MG TAB PO SCH (09:00)
[2018-06-25] MEDS: Metoprolol Succinate XL TAB* 25 MG PO SCH (09:05)
[2018-06-25] MEDS: Lisinopril TAB* 10 MG PO SCH (09:05)
[2018-06-25] MEDS: Aspirin 81 mg CHEW TAB* 81 MG TAB.CHEW PO SCH (09:05)
[2018-06-25] MEDS: Miconazole TOPICAL CREAM 2%* 30 GM TOPICAL SCH (09:06)
--- NOTE | 2018-06-25 10:35 | RAD ---
HISTORY: Pancreatitis COMPARISONS: Same day CT of the abdomen and pelvis TECHNIQUE: Multiple transverse and longitudinal ultrasound images were obtained of the right upper quadrant. FINDINGS: LIVER: The liver exhibits increased homogenous echogenicity. There are no focal suspicious masses or abnormal enlargement.. Normal hepatic and portal venous blood flow is duplicated with color flow imaging. There is no gross intrahepatic biliary duct dilatation. GALLBLADDER AND EXTRAHEPATIC BILIARY DUCT: The gallbladder is normal in appearance without intraluminal stones or other soft tissue masses. There is no pericholecystic fluid or gallbladder wall thickening. Overlying bowel gas prevents visualization confidently of the common bile duct. PANCREAS: Overlying bowel gas prevents reliable visualization of the pancreas. RIGHT KIDNEY: The right kidney is normal in size, morphology and echogenicity. AORTA AND IVC: The visualized portions are normal in appearance and not pathologically dilated. IMPRESSION: 1. OVERLYING BOWEL GAS PREVENTED IMAGING OF THE COMMON BILE DUCT AND PANCREAS. 2. HOMOGENOUSLY INCREASED ECHOGENICITY OF THE LIVER COULD BE SEEN WITH HEPATIC STEATOSIS OR OTHER CHRONIC INFILTRATIVE DISEASE OF THE LIVER.
--- NOTE | 2018-06-25 20:34 | PN ---
Cardiology Progress Note Date of Service: 06/25/18 - CC: nausea, abdominal pain. I stopped by to review with the patient and his dx of AVNRT and that he is a good candidate for EP ablation (has seen an EP MD). Pt had declined EPS/ablation in the past for insurance reasons, winter time. Once GI issues/pancreatitis stable we can consider antiarrhythmics.
[2018-06-25] MEDS ORDERED: Docusate CAP* 100 MG PO PRN (21:00)
[2018-06-25] MEDS ORDERED: Polyethylene Glycol 3350* 17 GM PACKET PO PRN (21:00)
[2018-06-26] MEDS: Heparin VIAL(*) 5000 UNITS/ML VIAL (FIVE THOUSAND) SUBCUT SCH (05:23)
--- NOTE | 2018-06-26 07:27 | PN ---
Subjective Date of Service: 06/26/18 Interval History: Mr. Barakat reports feeling very well and is eager for discharge to home. He has had his diet advanced to low fat this morning and has tolerated well. He has no abdominal pain and has had a bowel movement. Objective Active Medications: Acetaminophen (Tylenol Tab*) 650 mg PO Q6H PRN Aspirin (Aspirin 81 Mg Chew Tab*) 81 mg PO DAILY IMER Docusate Sodium (Colace Cap*) 100 mg PO BID PRN Heparin Sodium (Porcine) (Heparin Vial(*)) 5,000 units SUBCUT Q8HR IMER Lisinopril (Prinivil Tab*) 10 mg PO QAM IMER Metoprolol Succinate (Toprol Xl Tab*) 25 mg PO QAM IMER Metoprolol Tartrate (Lopressor Iv*) 5 mg IV Q5M PRN Miconazole Nitrate (Monistat 2%*) 1 applic TOPICAL DAILY IMER Morphine Sulfate (Morphine Inj ((Syringe))*) 2 mg IV Q4H PRN Ondansetron HCl (Zofran Inj*) 4 mg IV Q6H PRN Oxycodone HCl (Roxycodone Tab*) 5 mg PO Q6H PRN Polyethylene Glycol/Electrolytes (Miralax*) 17 gm PO BID PRN Vital Signs: Temp Pulse Resp BP Pulse Ox 98.1 F 70 18 134/68 95 06/26/18 03:34 06/26/18 03:34 06/26/18 03:34 06/26/18 03:34 06/26/18 03:34 Oxygen Devices in Use Now: None Appearance: Male sitting up in bed in [facility], at bedside Eyes: No Scleral Icterus Ears/Nose/Mouth/Throat: Mucous Membranes Moist Neck: Trachea Midline Respiratory: Symmetrical Chest Expansion and Respiratory Effort, Clear to Auscultation Cardiovascular: NL Sounds; No Murmurs; No JVD, No Edema Abdominal: NL Sounds; No Tenderness; No Distention Lymphatic: No Cervical Adenopathy Extremities: No Edema Skin: No Rash or Ulcers Neurological: Alert and Oriented x 3, NL Muscle Strength and Tone Nutrition: Taking PO's Result Diagrams: 06/25/18 05:13 06/25/18 05:14 Assess/Plan/Problems-Billing Assessment: Mr. Barakat is an 82 yo M with a PMH of SVT, HTN, DM, and aortic stenosis who was admitted on 06/24/18 with abdominal pain with concern for pancreatitis as well as SVT s/p chemical cardioversion. - Patient Problems (1) SVT (supraventricular tachycardia) Comment: - Resolved, has history of same. - Patient to follow up with Dr. Granados outpatient for consideration of EP follow up. (2) Pancreatitis Comment: - Resolved. - Question if referred pain from pancreatitis given positive lipase and CT showing inflammatory change at the tail of the pancreas, though is unusual presentation. - Lipase normal this AM. GB US unhelpful due to overlying bowel gas pattern, however patient is pain free and had no gallbladder abnormality noted on CT. - Suspect patient had mild acute pancreatitis due to passage of gall stone, recommend follow up with PCP. Possible repeat GB US outpatient. (3) Hypertension Comment: - SBP 100s. - Continue lisinopril and metoprolol. (4) Diabetes Comment: - BG well controlled. - Hold metformin and glipizide. (5) Adrenal nodule Comment: - Incidental finding, recommend follow up in [address] (6) DVT prophylaxis Comment: - Heparin SQ. (7) Full code status Comment: Status and Disposition: Inpatient. Anticipate discharge to home when medically stable.
[2018-06-26] MEDS: Aspirin 81 mg CHEW TAB* 81 MG TAB.CHEW PO SCH (09:02)
[2018-06-26] MEDS: Metoprolol Succinate XL TAB* 25 MG PO SCH (09:03)
[2018-06-26] MEDS: Lisinopril TAB* 10 MG PO SCH (09:03)
[2018-06-26] MEDS: Miconazole TOPICAL CREAM 2%* 30 GM TOPICAL SCH (09:05)
[2018-06-26 12:36] VITALS: BP 139/69
--- NOTE | 2018-06-26 16:33 | DS ---
CC: Dr. Patience Rasmussen; Dr. Granados * DISCHARGE SUMMARY: DATE OF ADMISSION: 06/24/18 DATE OF DISCHARGE: 06/26/18. PRIMARY CARE PHYSICIAN: Patience Rasmussen MD. FAST FOOD CREW LEAD: Dr. Granados ATTENDING PHYSICIAN: Dr. Geraldo Funk * (dictation provided by Thao Miller NP). PRIMARY DIAGNOSES: 1. Idiopathic pancreatitis with suspicion for possible gallstones. 2. Supraventricular tachycardia, resolved with medications. 3. Right groin rash suspected tinea cruris. SECONDARY DIAGNOSES: 1. History of supraventricular tachycardia. 2. Non-insulin dependent type 2 diabetes. 3. Hypertension. 4. History of low back pain due to spinal stenosis. 5. Obesity. 6. Aortic stenosis. 7. Bilateral direct inguinal hernias. MEDICATIONS AT THE TIME OF DISCHARGE: 1. Glipizide 10 mg p.o. q.a.m. 2. Metoprolol succinate 25 mg p.o. q.a.m. 3. Lisinopril 10 mg p.o. q.a.m. 4. Ibuprofen 800 mg p.o. t.i.d. p.r.n. 5. Aspirin 81 mg p.o. daily. 6. Metformin 500 mg p.o. q.a.m. 7. MiraLAX 17 g p.o. b.i.d. p.r.n. 8. Miconazole 2% one application topically daily. HOSPITAL COURSE: Ms. Barakat is an 82-year-old male who presented to the emergency room on 06/24/18 with the concern for abdominal pain x3 days. Please see dictated H and P from DANYEL Vazquez, for complete details. In brief, the patient said he had pain in the lower abdomen which radiated to his upper back that developed after eating large dinner of steaks, shrimp and baked potatoes. He had never had pain like that before. In the emergency room, he was found to be in SVT which he has a known history of. In the ED, he received an emergent consultation by Dr. Granados but was able to cardiovert back to normal sinus rhythm with treatment with adenosine. In the ED, he also had abdomen and pelvis CT which showed "mild inflammatory change at the tail of the pancreas correlate with clinical and laboratory assessment for acute pancreatitis, mild chronic diverticulosis without findings of acute diverticulitis, normal appendix documented, moderate-size bilateral small bowel containing direct inguinal hernias without inflammatory change resulting in bowel obstruction. A 2.2 cm nonspecific right adrenal nodule for which 3-month followup noncontrasted CT is suggested for reassessment.Followup: Please follow up within 3 months with a noncontrast CT for 2.2 cm right adrenal nodule noted." The patient had labs which were remarkable only for a lipase level of 280, his LFTs were normal. Mr. Barakat was admitted to the hospital out of concern for likely acute pancreatitis. The remainder of his workup included a gallbladder ultrasound which was a poor study due to overlying bowel gas pattern. The patient had a negative Escalante sign and his abdomen and pelvis CT showed unremarkable CT appearance of the gallbladder. The patient was treated with n.p.o. status, intravenous fluid and pain medications. The following day, the patient reported improvement of his pain and was trialed on a clear liquid diet which he tolerated well. Mr. Barakat states he is feeling much better today. He has had a low fat breakfast and states he tolerated it well without any abdominal pain. He has been monitored on telemetry and has had no SVT. He has had a bowel movement today and he is eager for discharge to home. Mr. Barakat is medically stable for discharge to home. He can follow up outpatient with Dr. Rasmussen for consideration of any further imaging of the gallbladder since our study here was low quality. At this time, he has no pain and his pancreatitis has resolved. He also need to follow up with Dr. Granados regarding this episode of SVT, in the past, he has been recommended to see an roustabout but he has declined to do so. DISPOSITION: Home. DIET: Low fat, low salt, low carb, high fiber. ACTIVITY: As tolerated. FOLLOWUP PLANS: Please follow up with Dr. Rasmussen in the next 1 week. Please follow up with Dr. Granados within the next month. TIME SPENT: Approximately 60 minutes were spent on the discharge of this patient, more than half the time was spent with the patient at the bedside reviewing the events leading up to this hospitalization, performing the physical examination and reviewing the plan of care. THAO MILLER, ANESTHESIOLOGIST ASSISTANT CERTIFIED [id number]/[facility] #: [id number] GEN[place]
== END 2018-06-26 13:10 | disposition home or self-care (01) | DRG 439 ==
LOC: ED 08:30 → MEDTELE 14:22
PROVIDERS: ADMIT Internal Medicine; ATTEND Student in an Organized Health Care Education/Training Program
DX: K85.10 Biliary acute pancreatitis without necrosis or infection (principal); I47.1 Supraventricular tachycardia; E27.8 Other specified disorders of adrenal gland; E11.9 Type 2 diabetes mellitus without complications; I35.0 Nonrheumatic aortic (valve) stenosis; I44.7 Left bundle-branch block, unspecified; I10 Essential (primary) hypertension; M48.00 Spinal stenosis, site unspecified; E66.9 Obesity, unspecified; B35.6 Tinea cruris; K40.90 Unilateral inguinal hernia, without obstruction or gangrene, not specified as recurrent; K57.30 Diverticulosis of large intestine without perforation or abscess without bleeding; F17.290 Nicotine dependence, other tobacco product, uncomplicated; M54.5 Low back pain; Z79.82 Long term (current) use of aspirin; Z79.84 Long term (current) use of oral hypoglycemic drugs; Z68.33 Body mass index [BMI] 33.0-33.9, adult; Z79.899 Other long term (current) drug therapy; Z82.5 Family history of asthma and other chronic lower respiratory diseases; Z80.0 Family history of malignant neoplasm of digestive organs; Z80.3 Family history of malignant neoplasm of breast; Z80.41 Family history of malignant neoplasm of ovary; Z83.3 Family history of diabetes mellitus; Z82.49 Family history of ischemic heart disease and other diseases of the circulatory system
CPT/HCPCS: 36415; 71045; 74177; 76705; 80048; 80053; 80061; 81003; 83605; 83690; 83735; 83880; 84436; 84443; 84484; 85025; 85610; 85730; 93005; 99285; A9270-GY; J0153; J1644; J2250; J2270; J3010; J3475; J3490; Q9967

== ENCOUNTER 2018-11-02 23:22 | Emergency (ER) | payer BC ==
[2018-11-03 00:15] LABS: ABS Basophils 0 10^3/ul (0-0.2); ABS Eosinophils 0.1 10^3/ul (0-0.6); ABS Lymphocytes 1.8 10^3/ul (1.0-4.8); ABS Monocytes 0.7 10^3/ul (0-0.8); ABS Nucleated RBC 0 10^3/ul; Eosinophil % 1.3 %; Hematocrit 42 % (42-52); Hemoglobin 13.9 g/dl (14.0-18.0); Lymphocyte % 39.9 %; Mean Corpuscular HGB Conc 33 g/dl (31-36); Mean Corpuscular Hemoglobin 30 pg (27-31); Mean Corpuscular Volume 90 fL (80-94); Mean Platelet Volume 8.2 fL (7.4-10.4); Nucleated Red Blood Cells % 0; Platelet Count 168 10^3/ul (150-450); Red Blood Count 4.63 10^6/ul (4.00-5.40); Red Cell Distribution Width 14 % (10.5-15); White Blood Count 4.5 10^3/ul (3.5-10.8)
[2018-11-03 00:31] LABS: Albumin 3.4 g/dL (3.2-5.2); BUN/Creatinine Ratio 18.3 (8-20); Calcium 8.8 mg/dL (8.6-10.3); EGFR Non-African American 89.9 (>60); Globulin 3.5 g/dL (2-4); Potassium 3.7 mmol/L (3.5-5.0); Total Bilirubin 0.4 mg/dL (0.2-1.0); Total Protein 6.9 g/dL (6.4-8.9)
[2018-11-03] MEDS ORDERED: Albuterol/Ipratropium NEB.SOL* Albuterol 2.5 MG/Ipratropium 0.5 MG 3 ML INH ONE (01:42)
[2018-11-03] MEDS ORDERED: Albuterol HFA INHALER* 8 gm MDI INH PRN (02:20)
--- NOTE | 2018-11-03 02:22 | ED ---
Influenza-Like Illness - HPI Summary HPI Summary: Complains of SOB, productive cough, wheezing, myalgia 8 days. Patient starting Tamiflu 7 days ago when his tested positive for flu. Also taking doxycycline 1 day. Denies fever, headache, ear pain, sore throat, CP, N/V/D, abdominal pain, change in urine, change in BM. Medical history is as SVT, pancreatitis, HTN, DM. Smokes cigars. - History of Current Complaint Chief Complaint: EDUpperRespComplaint Time Seen by Provider: 11/03/18 01:17 Hx Obtained From: Patient Onset/Duration: Gradual Onset Severity: Moderate Associated Signs & Symptoms: Myalgia, Cough - Allergy/Home Medications Allergies/Adverse Reactions: Allergies Allergy/AdvReac Type Severity Reaction Status Date / Time No Known Allergies Allergy Verified 11/02/18 23:35 PMH/Surg Hx/FS Hx/Imm Hx Endocrine/Hematology History: Reports: Hx Diabetes - type2 Cardiovascular History: Reports: Hx Hypertension - metoprolol and 10mg of lisinopril Denies: Hx Pacemaker/ICD Respiratory History: Denies: Hx Asthma, Hx Chronic Obstructive Pulmonary Disease (COPD) History: Denies: Hx Renal Disease Sensory History: Reports: Hx Contacts or Glasses Denies: Hx Hearing Aid Opthamlomology History: Reports: Hx Contacts or Glasses Neurological History: Denies: Hx Developmental Delay Psychiatric History: Denies: Hx Panic Disorder - Surgical History Surgery Procedure, Year, and Place: TONSILS as a child Hx Anesthesia Reactions: No Infectious Disease History: No Infectious Disease History: Denies: Traveled Outside the [place] in Last 30 Days - Family History Known Family History: Positive: Hypertension - Social History Lives: With Family Alcohol Use: Rare Substance Use Type: Reports: None Smoking Status (MU): Current Every Day Smoker Amount Used/How Often: smoke cigars - doesn't inhale just puffs,1 a day, smoked them for 65 years Have You Smoked in the Last Year: Yes Review of Systems Constitutional: Negative Eyes: Negative ENT: Negative Cardiovascular: Negative Positive: Shortness Of Breath, Cough Gastrointestinal: Negative Genitourinary: Negative Positive: Myalgia Skin: Negative Neurological: Negative Psychological: Normal All Other Systems Reviewed And Are Negative: Yes Physical Exam Triage Information Reviewed: Yes Vital Signs On Initial Exam: Initial Vitals Temp Pulse Resp BP Pulse Ox 98.1 F 75 16 143/81 93 11/02/18 23:25 11/02/18 23:25 11/02/18 23:25 11/02/18 23:25 11/02/18 23:25 Vital Signs Reviewed: Yes Appearance: Positive: Well-Appearing Skin: Positive: Warm Head/Face: Positive: Normal Head/Face Inspection Eyes: Positive: Normal ENT: Positive: Normal ENT inspection Neck: Positive: Supple Respiratory/Lung Sounds: Positive: Wheezes Cardiovascular: Positive: Normal Abdomen Description: Positive: Nontender Musculoskeletal: Positive: Normal Neurological: Positive: Normal Psychiatric: Positive: Normal AVPU Assessment: Alert - [place] Coma Scale Best Eye Response: 4 - Spontaneous Best Motor Response: 6 - Obeys Commands Best Verbal Response: 5 - Oriented Coma Scale Total: 15 Diagnostics - Vital Signs Vital Signs Temp Pulse Resp BP Pulse Ox 11/03/18 01:56 72 14 92 11/03/18 01:29 85 160/102 90 11/03/18 01:27 78 91 11/02/18 23:25 98.1 F 75 16 143/81 93 - Laboratory Lab Results: Lab Results 11/03/18 11/03/18 11/03/18 Range/Units 00:01 00:01 00:02 WBC 4.5 (3.5-10.8) 10^3/ul RBC 4.63 (4.00-5.40) 10^6/ul Hgb 13.9 L (14.0-18.0) g/dl Hct 42 (42-52) % MCV 90 (80-94) fL MCH 30 (27-31) pg MCHC 33 (31-36) g/dl RDW 14 (10.5-15) % Plt Count 168 (150-450) 10^3/ul MPV 8.2 (7.4-10.4) fL Neut % (Auto) 43.2 % Lymph % (Auto) 39.9 % Garden % (Auto) 15.2 % Eos % (Auto) 1.3 % Baso % (Auto) 0.4 % Absolute Neuts (auto) 2.0 (1.5-7.7) 10^3/ul Absolute Lymphs (auto) 1.8 (1.0-4.8) 10^3/ul Absolute Monos (auto) 0.7 (0-0.8) 10^3/ul Absolute Eos (auto) 0.1 (0-0.6) 10^3/ul Absolute Basos (auto) 0 (0-0.2) 10^3/ul Absolute Nucleated RBC 0 10^3/ul Nucleated RBC % 0 Sodium 138 (135-145) mmol/L Potassium 3.7 (3.5-5.0) mmol/L Chloride 105 (101-111) mmol/L Carbon Dioxide 26 (22-32) mmol/L Anion Gap 7 (2-11) mmol/L BUN 15 (6-24) mg/dL Creatinine 0.82 (0.67-1.17) mg/dL Est GFR ( Amer) 108.8 (>60) Est GFR (Non-Af Amer) 89.9 (>60) BUN/Creatinine Ratio 18.3 (8-20) Glucose 136 H (70-100) mg/dL Lactic Acid 0.6 (0.5-2.0) mmol/L Calcium 8.8 (8.6-10.3) mg/dL Total Bilirubin 0.40 (0.2-1.0) mg/dL AST 31 (13-39) U/L ALT 24 (7-52) U/L Alkaline Phosphatase 54 (34-104) U/L Total Protein 6.9 (6.4-8.9) g/dL Albumin 3.4 (3.2-5.2) g/dL Globulin 3.5 (2-4) g/dL Albumin/Globulin Ratio 1.0 (1-3) Influenza B (Rapid) (Negative) 11/03/18 Range/Units 01:46 WBC (3.5-10.8) 10^3/ul RBC (4.00-5.40) 10^6/ul Hgb (14.0-18.0) g/dl Hct (42-52) % MCV (80-94) fL MCH (27-31) pg MCHC (31-36) g/dl RDW (10.5-15) % Plt Count (150-450) 10^3/ul MPV (7.4-10.4) fL Neut % (Auto) % Lymph % (Auto) % Garden % (Auto) % Eos % (Auto) % Baso % (Auto) % Absolute Neuts (auto) (1.5-7.7) 10^3/ul Absolute Lymphs (auto) (1.0-4.8) 10^3/ul Absolute Monos (auto) (0-0.8) 10^3/ul Absolute Eos (auto) (0-0.6) 10^3/ul Absolute Basos (auto) (0-0.2) 10^3/ul Absolute Nucleated RBC 10^3/ul Nucleated RBC % Sodium (135-145) mmol/L Potassium (3.5-5.0) mmol/L Chloride (101-111) mmol/L Carbon Dioxide (22-32) mmol/L Anion Gap (2-11) mmol/L BUN (6-24) mg/dL Creatinine (0.67-1.17) mg/dL Est GFR ( Amer) (>60) Est GFR (Non-Af Amer) (>60) BUN/Creatinine Ratio (8-20) Glucose (70-100) mg/dL Lactic Acid (0.5-2.0) mmol/L Calcium (8.6-10.3) mg/dL Total Bilirubin (0.2-1.0) mg/dL AST (13-39) U/L ALT (7-52) U/L Alkaline Phosphatase (34-104) U/L Total Protein (6.4-8.9) g/dL Albumin (3.2-5.2) g/dL Globulin (2-4) g/dL Albumin/Globulin Ratio (1-3) Influenza B (Rapid) Positive A (Negative) Result Diagrams: 11/03/18 00:01 11/03/18 00:01 Lab Statement: Any lab studies that have been ordered have been reviewed, and results considered in the medical decision making process. Flu Symptom Course/Dx - Course Course Of Treatment: Complains of SOB, productive cough, wheezing, myalgia 8 days. Patient starting Tamiflu 7 days ago when his tested positive for flu. Also taking doxycycline 1 day. Denies fever, headache, ear pain, sore throat, CP, N/V/D, abdominal pain, change in urine, change in BM. Medical history is as SVT, pancreatitis, HTN, DM. Smokes cigars. Wheezes bilaterally. Physical exam otherwise unremarkable. Vital signs within normal limits. Chest x-ray unremarkable. Labs unremarkable. Positive for flu a. Patient states SOB symptoms improved with DuoNeb. Patient already taking Tamiflu. Continue with same. Rx for albuterol inhaler. Follow-up with primary care. - Diagnoses Provider Diagnoses: Influenza Discharge - Sign-Out/Discharge Documenting (check all that apply): Patient Departure - Discharge Plan Condition: Stable Disposition: HOME Patient Education Materials: Influenza (ED) Referrals: Patience Rasmussen MD [Primary Care Provider] - Additional Instructions: Continue taking Tamiflu. Use inhaler as directed. Alternate ibuprofen 600 mg with Tylenol 650 mg every 3 hours for control of fever and body aches. Drink plenty of fluids to maintain hydration. Follow-up with primary care. Return to the ED for any new or worsening symptoms - Billing Disposition and Condition Condition: STABLE Disposition: Home
[2018-11-03] MEDS ORDERED: Albuterol HFA INHALER* 8 gm MDI INH ONE (02:27)
[2018-11-03 02:39] VITALS: BP 159/100
== END 2018-11-03 02:38 | disposition home or self-care (01) ==
LOC: ED 23:22
DX: J10.1 Influenza due to other identified influenza virus with other respiratory manifestations (principal); I10 Essential (primary) hypertension; F17.290 Nicotine dependence, other tobacco product, uncomplicated
CPT/HCPCS: 36415; 71046; 80053; 83605; 85025; 99282; A9270-GY

== ENCOUNTER 2018-12-06 21:08 | Observation (INO) | payer BC ==
[2018-12-06] MEDS ORDERED: Midazolam* 1 MG/ML 5 ML VIAL (5 MG) ONE (21:41)
[2018-12-06] MEDS ORDERED: fentaNYL* 50 MCG/ML 2 ML VIAL (100 MCG VIAL) IV SLOW PU ONE (21:41)
[2018-12-06] MEDS ORDERED: Midazolam* 1 MG/ML 5 ML VIAL (5 MG) SLOW PUSH ONE (21:41)
[2018-12-06] MEDS ORDERED: fentaNYL* 50 MCG/ML 2 ML VIAL (100 MCG VIAL) ONE (21:42)
[2018-12-06] MEDS ORDERED: NS 0.9% 1000 ML** 1,000 ML IV ONE (21:42)
--- NOTE | 2018-12-06 21:44 | ED ---
Palpitations / Dysrhythmia - HPI Summary HPI Summary: This patient is an 83 year old M presenting to [facility] with a chief complaint of rapid heart palpitations since 08:00. The patient rates the pain 6/10 in severity. Symptoms aggravated by nothing. Symptoms alleviated by nothing. Patient reports intermittent CP, left arm pain, and numbness in left hand but notes that these symptoms have resolved TESTER ELECTRONIC SCALE. Patient denies any current pain. Patient notes that he has previously had similar symptoms but they did not last as long and went away on their own. Pt has hx LBBB and SVT. - History of Current Complaint Chief Complaint: EDChestPainROMI Hx Obtained From: Patient Onset/Duration: Sudden Onset, Lasting Hours - 13 hours, Still Present Severity Initially: Mild Severity Currently: Mild Character: Fast Aggravating: Nothing Alleviating: Nothing Associated Signs & Symptoms: Chest Pain - Allergy/Home Medications Allergies/Adverse Reactions: Allergies Allergy/AdvReac Type Severity Reaction Status Date / Time No Known Allergies Allergy Verified 11/02/18 23:35 PMH/Surg Hx/FS Hx/Imm Hx Endocrine/Hematology History: Reports: Hx Diabetes - type2 Cardiovascular History: Reports: Hx Hypertension - metoprolol and 10mg of lisinopril, Hx Supraventricular Ventricular Tachycardia, Other Cardiovascular Problems/Disorders - LBBB Denies: Hx Pacemaker/ICD Respiratory History: Denies: Hx Asthma, Hx Chronic Obstructive Pulmonary Disease (COPD) History: Denies: Hx Renal Disease Sensory History: Reports: Hx Contacts or Glasses Denies: Hx Hearing Aid Opthamlomology History: Reports: Hx Contacts or Glasses Neurological History: Denies: Hx Developmental Delay Psychiatric History: Denies: Hx Panic Disorder - Surgical History Surgery Procedure, Year, and Place: TONSILS as a child Hx Anesthesia Reactions: No Infectious Disease History: No Infectious Disease History: Denies: Traveled Outside the [place] in Last 30 Days - Family History Known Family History: Positive: Hypertension - Social History Alcohol Use: Rare Substance Use Type: Reports: None Smoking Status (MU): Current Every Day Smoker Amount Used/How Often: smoke cigars - doesn't inhale just puffs,1 a day, smoked them for 65 years Have You Smoked in the Last Year: Yes Review of Systems Negative: Fever Negative: Epistaxis Positive: Palpitations - fast heart beat, Chest Pain - resovled TESTER ELECTRONIC SCALE Negative: Vomiting Musculoskeletal: Other - left arm pain that resolved TESTER ELECTRONIC SCALE Positive: Numbness - in left arm that resolved TESTER ELECTRONIC SCALE All Other Systems Reviewed And Are Negative: Yes Physical Exam - Summary Physical Exam Summary: VITAL SIGNS: Reviewed. GENERAL: Patient is a well-developed and nourished MALE who is lying comfortable in the stretcher. Patient is not in any acute respiratory distress. Patient looks pale HEAD AND FACE: No signs of trauma. No ecchymosis, hematomas or skull depressions. No sinus tenderness. EYES: PERRLA, EOMI x 2, No injected conjunctiva, no nystagmus. EARS: Hearing grossly intact. Ear canals and tympanic membranes are within normal limits. MOUTH: Oropharynx within normal limits. NECK: Supple, trachea is midline, no adenopathy, no JVD, no carotid bruit, no c- spine tenderness, neck with full ROM. CHEST: Symmetric, no tenderness at palpation LUNGS: Clear to auscultation bilaterally. No wheezing or crackles. CVS: Regular rhythm, Tachycardia, S1 and S2 present, no murmurs or gallops appreciated. ABDOMEN: Soft, non-tender. Abd is distended. No rebound no guarding, and no masses palpated. Bowel sounds are normal. EXTREMITIES: FROM in all major joints, bilateral lower extremity edema +1-2, no cyanosis or clubbing. NEURO: Alert and oriented x 3. No acute neurological deficits. Speech is normal and follows commands. SKIN: Dry and warm. Triage Information Reviewed: Yes Vital Signs On Initial Exam: Initial Vitals Temp Pulse Resp BP Pulse Ox 97.9 F 153 18 115/76 95 12/06/18 21:17 12/06/18 21:17 12/06/18 21:17 12/06/18 21:17 12/06/18 21:17 Vital Signs Reviewed: Yes Procedures - Procedure Summary Procedure Summary: Moderate sedation: Verbal consent for moderate sedation was obtained from the patient and his . The patient was given Versed and Fentanyl. Moderate sedation protocol was followed. There were no complications and no reversal agents were used. Vital signs remained stable after administration. Time was 15 minutes. Cardioversion: Under moderate sedation, the patient was cardioverted using 100 joules. Patient converted to sinus rhythm after the 1st cardioversion attempt. - Additional Procedures Additional Procedures: cardioversion/defib - Under moderate sedation, the patient was cardioverted using 100 joules. Patient converted to sinus rhythm after the 1st cardioversion attempt. Diagnostics - Vital Signs Vital Signs Temp Pulse Resp BP Pulse Ox 12/06/18 21:17 97.9 F 153 18 115/76 95 - Laboratory Result Diagrams: 12/06/18 21:44 12/06/18 21:44 Lab Statement: Any lab studies that have been ordered have been reviewed, and results considered in the medical decision making process. - Radiology CXR Radiology Interpretation Completed By: ED Physician - Dr. Auguste, pending official report Summary of Radiographic Findings: no acute process - EKG 21:23 Cardiac Rate: Tachycardia - wide complex tachycardia at 149 bpm Summary of EKG Findings: complex tachycardia at 149 bpm 21:51 Cardiac Rate: NL - at 94 bpm EKG Rhythm: Sinus Rhythm Summary of EKG Findings: sinus rhythm at 94 bpm with PECs and LBBB. Course/Dx - Course Course Of Treatment: This patient is an 83 year old M with hx LBBB and SVT presenting to [facility] with a chief complaint of rapid heart palpitations since 08: 00. Patient reports intermittent CP, left arm pain, and numbness in left hand but notes that these symptoms have resolved TESTER ELECTRONIC SCALE. Patient denies any current pain. Patient notes that he has previously had similar symptoms but they did not last as long and went away on their own. An EKG at 21:23 reveals wide complex tachycardia at 149 bpm. Verbal consent for moderate sedation was obtained from the patient and his . The patient was given Versed and Fentanyl. Moderate sedation protocol was followed. There were no complications and no reversal agents were used. Vital signs remained stable after administration. Time was 15 minutes. Under moderate sedation, the patient was cardioverted using 100 joules. Patient converted to sinus rhythm after the 1st cardioversion attempt. Post-cardioversion EKG, taken at 21:51, reveals sinus rhythm at 94 bpm with PECs and LBBB. CXR reveals, per ED physician, no acute process Test results with no significant abnormalities except for elevated lactic acid. In the ED course the patient was given fentanyl, Versed, and IV fluids. We discussed patient care with Dr. Lockhart, hospitalist, and they agreed to admit the patient to [facility]. Dx CP and SVT. 40 minutes of critical care time were performed. Patient will be admitted to [facility]. The patient is agreeable with this plan. - Diagnoses Provider Diagnoses: SVT (supraventricular tachycardia), Chest pain - Physician Notifications Discussed Care Of Patient With: Denia Lockhart Time Discussed With Above Provider: 22:57 Instructed by Provider To: Admit As Inpatient - Critical Care Time Critical Care Time: 30-74 min - 40 minutes Discharge - Sign-Out/Discharge Documenting (check all that apply): Patient Departure - admit to [facility] Patient Received Moderate/Deep Sedation with Procedure: Yes - moderate sedation was administered - Discharge Plan Condition: Fair Disposition: ADMITTED TO [facility] Patient Education Materials: Moderate Sedation (ED) Referrals: Patience Rasmussen MD [Primary Care Provider] - - Attestation Statements Document Initiated by Scribe: Yes Documenting Scribe: Shayy Austin Provider For Whom Scribe is Documenting (Include Credential): Brittney Auguste MD Scribe Attestation: Shayy Garcia, scribed for Brittney Auguste MD on 12/06/18 at 1747. Status of Scribe Document: Ready
[2018-12-06 22:09] LABS: ABS Basophils 0 10^3/ul (0-0.2); ABS Eosinophils 0.2 10^3/ul (0-0.6); ABS Lymphocytes 2.7 10^3/ul (1.0-4.8); ABS Monocytes 0.7 10^3/ul (0-0.8); ABS Neutrophils 4.1 10^3/ul (1.5-7.7); ABS Nucleated RBC 0 10^3/ul; Eosinophil % 2.3 %; Hematocrit 46 % (42-52); Lymphocyte % 35.1 %; Mean Corpuscular HGB Conc 33 g/dl (31-36); Mean Corpuscular Hemoglobin 30 pg (27-31); Mean Corpuscular Volume 90 fL (80-94); Mean Platelet Volume 8.7 fL (7.4-10.4); Nucleated Red Blood Cells % 0.1; Platelet Count 206 10^3/ul (150-450); Red Blood Count 5.07 10^6/ul (4.00-5.40); Red Cell Distribution Width 14 % (10.5-15); White Blood Count 7.7 10^3/ul (3.5-10.8)
[2018-12-06 22:22] LABS: Activated Partial Thrombo Time 30.5 seconds (26.0-36.3); INR 1.02 (0.77-1.02)
[2018-12-06 22:25] LABS: Albumin/Globulin Ratio 1.4 (1-3); BUN/Creatinine Ratio 21.8 (8-20); Calcium 9.2 mg/dL (8.6-10.3); EGFR African American 77.5 (>60); EGFR Non-African American 64.1 (>60); Globulin 2.8 g/dL (2-4); Magnesium 1.7 mg/dL (1.9-2.7); Potassium 4.3 mmol/L (3.5-5.0); Total Bilirubin 0.5 mg/dL (0.2-1.0); Total Protein 6.8 g/dL (6.4-8.9)
[2018-12-06 22:26] LABS: Troponin I 0.03 ng/mL (<0.04)
[2018-12-06 22:52] LABS: TSH (Thyroid Stimulating Horm) 1.23 mcIU/mL (0.34-5.60)
[2018-12-06] MEDS ORDERED: Insulin REGULAR(*) 1 UNITS UNIT IV PUSH ONE (22:54)
[2018-12-06] MEDS ORDERED: Acetaminophen TAB* 325 MG PO PRN (23:48)
[2018-12-06] MEDS ORDERED: Ondansetron INJ* 2 MG/ML VIAL IV PRN (23:48)
[2018-12-06] MEDS ORDERED: Dextrose 50% Syringe 50 ML* 25 GM/50 ML SYRINGE IV PUSH PRN (23:50)
[2018-12-07] MEDS ORDERED: Magnesium Sulfate 2 GM IV* 2 GM/50 ML BAG IVPB ONE
[2018-12-07] MEDS: Enoxaparin(*) 40 MG/0.4 ML SYR SUBCUT SCH (01:32)
--- NOTE | 2018-12-07 01:45 | HP ---
CC: Patience Rasmussen M.D.; Kiara Granados MD HISTORY AND PHYSICAL: DATE OF ADMISSION: 12/06/18 PRIMARY CARE PROVIDER: Patience Rasmussen M.D. CHIEF COMPLAINT: Chest pain. HISTORY OF PRESENT ILLNESS: This is an 83-year-old male with history of SVT, who comes to the emerge ncy room because of palpitations associated with chest discomfort, arm discomfort, and neck discomfor t. The symptoms started at around approximately 9 o'clock in the morning. The patient attributed th is to what he ate for breakfast, however, the symptoms persisted. This was also associated with diap horesis and feeling of hot flashes. There was no lightheadedness, no nausea, no vomiting. There wer e no syncopal episodes. No shortness of breath. The patient was requested to come to the emergency room by his . In the emergency room, the patient was found to have SVT, the patient was subsequently cardioverted i nto regular rhythm. Subsequently, the emergency room provider contacted the hospitalist service. PAST MEDICAL HISTORY: Includes: 1. Pancreatitis. 2. SVT. 3. Spinal stenosis. 4. Hypertension. 5. Diabetes. 6. Obesity. 7. Aortic stenosis. 8. Inguinal hernia. PAST SURGICAL HISTORY: Tonsillectomy. HOME MEDICATIONS: Include: 1. Cyanocobalamin. 2. Vitamin B12 500 mg daily. 3. Metformin 500 mg daily. 4. Glipizide 10 mg in the morning. 5. Metoprolol succinate 25 mg in the morning. 6. Lisinopril 10 mg daily. 7. Aspirin 81 mg daily. SOCIAL HISTORY: He lives at home with his , smokes cigars about 2 times a week, occasional alcoh ol use. FAMILY HISTORY: Mother: Tachycardia, congestive heart failure. Father: Leukemia and myocardial in farction. REVIEW OF SYSTEMS: There are no fevers, no chills. The patient was having palpitations as well as d iaphoresis. There is no ear pain, no sore throat, no changes in his vision or hearing. Cardiovascul ar: See HPI. He does not have any shortness of breath, no cough, no sputum production, no abdominal pain, no nausea, no vomiting, no diarrhea; there are no headaches, no trouble with urination, no hes itancy, no dysuria. No rashes or lesions; full review of system was done, was negative otherwise sta daryl in the HPI. PHYSICAL EXAMINATION GENERAL: This is a well-developed, well-nourished male, lying in the ER stretcher, in no acute distr ess. VITAL SIGNS: Blood pressure of 114/70, heart rate of 74, respiratory rate of 17, pulse ox of 92% o n room air, temperature of 99.4 degrees Fahrenheit. HEENT: Pupils equal, round, reactive to light. Atraumatic, normocephalic. Oral mucosa is dry. The re is no nystagmus. NECK: Supple with no JVD. LUNGS: There is no tachypnea, no use of accessory muscles. Lungs are clear to auscultation bilatera lly with no wheezing, rales, or rhonchi. HEART: Regular rate and rhythm. A 2/6 systolic murmur best heard at the right upper sternal border. There is no chest wall tenderness. ABDOMEN: Bowel sounds are normoactive in all 4 quadrants. Abdomen is soft, nontender, nondistended. EXTREMITIES: There is no lower extremity edema, no calf tenderness. Dorsalis pedis +2 bilaterally. NEUROLOGIC: Alert and oriented x3, no focal neurological deficits. There is no facial asymmetry. S peech is clear and coherent. Motor is 5/5 in all 4 extremities. SKIN: There are no rashes or lesions. DIAGNOSTIC STUDIES/LAB DATA: Labs: White count of 7.7, hemoglobin of 15, hematocrit of 46, platele ts of 206, lactic acid of 2.6, glucose of 312, magnesium of 1.7. BNP of 373, troponin of 0.03. Chest x-ray did not show any acute pathology as reviewed by myself. EKG shows left bundle-branch block with sinus arrhythmia. On telemetry: Currently is showing normal sinus rhythm. IMPRESSION AND PLAN: 1. Supraventricular tachycardia: Resolved after having a cardioversion. We will monitor the patien t on telemetry, we will cycle the second and third troponin. We will replete patient's magnesium. W e will try to get potassium greater than 4 at all times as well as magnesium greater than 2. 2. Lactic acidosis: We will give the patient IV fluids. At this point, the patient is not having s igns of infection. There is no leukocytosis, no fever. 3. Chest pain: Resolved. Likely secondary to the supraventricular tachycardia. 4. Diabetes: Due to lactic acidosis, hold patient's metformin, otherwise, we will continue the glip izide, insulin sliding scale has been ordered. 5. Continue patient's home dose metoprolol. We will also obtain an echocardiogram to review additio nal heart pathology that could have contributed to the supraventricular tachycardia. [id number]/[facility] #: [id number]
[2018-12-07 06:48] LABS: BUN/Creatinine Ratio 28.4 (8-20); Calcium 8.8 mg/dL (8.6-10.3); EGFR African American 100.3 (>60); EGFR Non-African American 82.9 (>60); Magnesium 2.3 mg/dL (1.9-2.7); Phosphorus 3.6 mg/dL (2.5-5.0); Potassium 4.3 mmol/L (3.5-5.0); Troponin I 0.03 ng/mL (<0.04)
[2018-12-07] MEDS: Insulin LISPRO* 1 UNITS UNIT SUBCUT SCH ×4 (08:11→21:01)
[2018-12-07] MEDS: Aspirin 81 mg CHEW TAB* 81 MG TAB.CHEW PO SCH (08:17)
[2018-12-07] MEDS: Cyanocobalamin TAB* 500 MCG PO SCH (08:17)
[2018-12-07] MEDS: glipiZIDE TAB* 5 MG PO SCH (08:17)
[2018-12-07] MEDS: Lisinopril TAB* 10 MG PO SCH (08:17)
[2018-12-07] MEDS ORDERED: Metoprolol Succinate XL TAB* 25 MG PO SCH (09:00)
[2018-12-07] MEDS ORDERED: Perflutren Lipid Microsphere* 3 ML VIAL ONE (10:08)
[2018-12-07] MEDS: NS 0.9% 1000 ML** 1,000 ML IV SCH ×2 (10:41→17:23)
--- NOTE | 2018-12-07 12:18 | ECHO ---
Patient: CAROLINE MELLO [facility] Rec#: [id number] : 1935 Date: 12/07/2018 Age: 83y Height: 178 cm / 70.1 in Weight: 98 kg / 216.0 lbs Sex: M BSA: 2.16 Room#: [facility] Admit Date#: 12/06/2018 Type: Inpatient Referring: Denia Lockhart Reading: Cali Lincoln MD Weed Control Inspector: Sugey Singleton RDCS,RDMS CC: Patience Rasmussen MD Transthoracic Echocardiogram Indication: SVT BP: 106/62 HR: 61 Rhythm: NSR Findings History: SVT, AOV stenosis, HTN Technical Comments: The study quality is fair. Left Ventricle: The left ventricular chamber size is normal. Mild concentric left ventricular hypertrophy is observed. Global left ventricular wall motion and contractility are within normal limits. There is normal left ventricular systolic function. The estimated ejection fraction is 50-55%. There is an E to A reversal in the mitral valve flow pattern suggestive of diastolic dysfunction. Left Atrium: The left atrial chamber size is normal. Right Ventricle: The right ventricular chamber size and systolic function are within normal limits. Right Atrium: The right atrial cavity size is normal. Aortic Valve: The aortic valve is trileaflet. The aortic valve leaflets are mildly thickened. There is moderate thickening of the left coronary cusp. Systolic excursion of the aortic valve cusps is reduced. There is trace to mild aortic regurgitation. There is mild to moderate aortic stenosis. The mean gradient of the aortic valve is 12 mmHg. Mitral Valve: There is mitral annular calcification. The mitral valve leaflets are mildly thickened. There is a trace of mitral regurgitation. Tricuspid Valve: The tricuspid valve leaflets are normal. There is trace tricuspid regurgitation. No pulmonary hypertension is noted. Pulmonic Valve: The pulmonic valve structure is not well visualized. There is no evidence of pulmonic valve thickening. There is no evidence of pulmonic regurgitation. There is no pulmonic stenosis. Pericardium: There is no significant pericardial effusion. Aorta: There is mild dilatation of the ascending aorta. There is no dilatation of the aortic arch. The aortic root is normal in size. Pulmonary Artery: The main pulmonary artery is not well visualized. Venous: The inferior vena cava appears normal in size. There is an approximate 50% respiratory change in the inferior vena cava dimension. Contrast: Definity was used to optimize study. A total of 2.5 ml was used. Conclusions There is normal left ventricular systolic function. The estimated ejection fraction is 50-55%. Global left ventricular wall motion and contractility are within normal limits. Mild concentric left ventricular hypertrophy is observed. Normal cardiac chamber sizes. Impaired diastolic relaxation. There is mild to moderate aortic stenosis. There is mild dilatation of the ascending aorta. Since the prior echocardiogram completed 08/04/18, there is no significant change. Measurements Name Value Normal Range RVIDd (AP) 2D 2.2 cm (0.9 - 2.6) RVDdMajor (2D) 3.4 cm (2.2 - 4.4) RAd ISD 4CH 4.8 cm (3.4 - 4.9) RA (A4C)W 4.3 cm (2.9 - 4.6) IVSd (2D) 1.2 cm (0.6 - 1) LVPWd (2D) 1.1 cm (0.6 - 1) LVIDd (2D) 5.2 cm (3.6 - 5.4) LVIDs (2D) 3.7 cm - LV FS (2D) 30 % (25 - 45) Aortic Annulus 2 cm (1.4 - 2.6) Ao root diameter (2D) 3.3 cm (2.1 - 3.5) Ascending Ao 3.6 cm (2.1 - 3.4) Aortic arch 2.6 cm (1.8 - 3.4) LA dimension (AP) 2D 2.7 cm (2.3 - 3.8) LAd ISD 4CH 6.2 cm (2.9 - 5.3) LA ISD 4CH W 4.2 cm (2.5 - 4.5) Name Value Normal Range LA ESV BP (A/L) index 25 ml/m2 - Name Value Normal Range MV E-wave Vmax 0.6 m/sec - MV deceleration time 100 msec - MV A-wave Vmax 0.8 m/sec - MV E:A ratio 0.7 ratio - P. vein S-wave Vmax 0.4 m/sec - P. vein D-wave Vmax 0.2 m/sec - P. vein S:D Vmax ratio 2.1 ratio - P. vein A-wave duration 121 msec - LV septal e' Vmax 0.05 m/sec - LV lateral e' Vmax 0.07 m/sec - LV E:e' septal ratio 12 ratio - LV E:e' lateral ratio 8 ratio - Name Value Normal Range AV Vmax 2.3 m/sec - AV VTI 50 cm - AV peak gradient 22 mmHg - AV mean gradient 12 mmHg - LVOT diameter 2 cm - LVOT Vmax 0.9 m/sec - LVOT VTI 18 cm - LVOT peak gradient 3.2 mmHg - LVOT mean gradient 2 mmHg - DOI (VTI) 0.4 ratio - DORETHA (continuity Vmax) 1.2 cm2 - DORETHA (continuity VTI) 1.1 cm2 - AR PHT 528 msec - AMBIKA Vmax 0.5 m/sec - Name Value Normal Range TR Vmax 2 m/sec - TR peak gradient 16 mmHg - RAP 3 mmHg - RVSP 19 mmHg - IVC diameter 2.1 cm - Name Value Normal Range PV Vmax 0.7 m/sec - PV peak gradient 2 mmHg -
[2018-12-07 17:06] LABS: Magnesium 2.2 mg/dL (1.9-2.7)
[2018-12-07 17:08] LABS: Troponin I 0.03 ng/mL (<0.04)
--- NOTE | 2018-12-07 19:26 | PN ---
Subjective Date of Service: 12/07/18 Interval History: On initial assessment patient sitting in bed. Reports occasional left upper side pain (pointing to under armpit) which he described as a "toothache". Reports pain improves with belching. Denies radiation or associate symptoms. Reports pain for previous night has resolved which includes left chest pain, left arm pain, upper back pain, and neck pain. Reports this pain improved while in ED. Patient denies chest pressure, palpitations, nausea, vomiting, dizziness , fever/chills. Patient discussed wanting to go home. I reviewed echo which was unchanged from 07/2018. I discussed patient with Dr Lincoln, regarding whether or not patient would need stress test while inpatient. Per Dr Lincoln patient has be stressed as outpatient if Dr Granados (patient's resident inspector) deems necessary. Later in the afternoon, patient was to be discharged and was asking for discharge. Per nurse patient started to complain of dizziness and was noted to have increase heart rate into 130 -150s on the monitor. EKG obtained and consistent with SVT with LBBB. Patient converted on his own in 12 to 15 minutes. Objective Active Medications: Acetaminophen (Tylenol Tab*) 650 mg PO Q6H PRN PRN Reason: PAIN Aspirin (Aspirin 81 Mg Chew Tab*) 81 mg PO DAILY [facility] Last Admin: 12/07/18 08:17 Dose: 81 mg Cyanocobalamin (Vitamin B12 Tab*) 500 mcg PO DAILY [facility] Last Admin: 12/07/18 08:17 Dose: 500 mcg Dextrose (D50w Syringe 50 Ml*) 12.5 gm IV PUSH .FOR FS < 60 - SS PRN PRN Reason: FS < 60 Enoxaparin Sodium (Lovenox(*)) 40 mg SUBCUT Q24H [facility] Last Admin: 12/07/18 01:32 Dose: Not Given Glipizide (Glucotrol Tab*) 10 mg PO QAM [facility] Last Admin: 12/07/18 08:17 Dose: 10 mg Sodium Chloride (Ns 0.9% 1000 Ml) 1,000 mls @ 75 mls/hr IV PER RATE [facility] Last Admin: 12/07/18 17:23 Dose: 75 mls/hr Insulin Human Lispro (Humalog*) 0 units SUBCUT ACHS [facility]; Protocol Last Admin: 12/07/18 17:23 Dose: 2 units Lisinopril (Prinivil Tab*) 10 mg PO [facility] Last Admin: 12/07/18 08:17 Dose: 10 mg Metoprolol Succinate (Toprol Xl Tab*) 25 mg PO [facility] Last Admin: 12/07/18 08:17 Dose: 25 mg Ondansetron HCl (Zofran Inj*) 4 mg IV Q6H PRN PRN Reason: NAUSEA Vital Signs - 8 hr 12/07/18 12/07/18 11:56 15:06 Temperature 97.3 F Pulse Rate 62 134 Respiratory 19 Rate Blood Pressure 137/70 124/79 (mmHg) O2 Sat by Pulse 96 Oximetry Oxygen Devices in Use Now: None Appearance: NAD Eyes: No Scleral Icterus Ears/Nose/Mouth/Throat: Clear Oropharnyx, Mucous Membranes Moist Neck: NL Appearance and Movements; NL JVP Respiratory: Symmetrical Chest Expansion and Respiratory Effort, Clear to Auscultation Cardiovascular: NL Sounds; No Murmurs; No JVD, RRR, No Edema Abdominal: NL Sounds; No Tenderness; No Distention Lymphatic: No Cervical Adenopathy Extremities: No Edema Skin: No Rash or Ulcers Neurological: Alert and Oriented x 3 Nutrition: Taking PO's Result Diagrams: 12/06/18 21:44 12/07/18 05:56 Additional Lab and Data: Laboratory Results - last 24 hr 12/06/18 12/06/18 12/06/18 21:44 21:44 21:44 WBC 7.7 RBC 5.07 Hgb 15.0 Hct 46 MCV 90 MCH 30 MCHC 33 RDW 14 Plt Count 206 MPV 8.7 Neut % (Auto) 53.3 Lymph % (Auto) 35.1 [place] % (Auto) 8.8 Eos % (Auto) 2.3 Baso % (Auto) 0.5 Absolute Neuts (auto) 4.1 Absolute Lymphs (auto) 2.7 Absolute Monos (auto) 0.7 Absolute Eos (auto) 0.2 Absolute Basos (auto) 0 Absolute Nucleated RBC 0 Nucleated RBC % 0.1 INR (Anticoag Therapy) 1.02 APTT 30.5 Sodium 135 Potassium 4.3 Chloride 101 Carbon Dioxide 28 Anion Gap 6 BUN 24 Creatinine 1.10 Est GFR ( Amer) 77.5 Est GFR (Non-Af Amer) 64.1 BUN/Creatinine Ratio 21.8 H Glucose 312 H POC Glucose (mg/dL) Lactic Acid Calcium 9.2 Phosphorus Magnesium 1.7 L Total Bilirubin 0.50 AST 21 ALT 26 Alkaline Phosphatase 55 Troponin I 0.03 B-Natriuretic Peptide Total Protein 6.8 Albumin 4.0 Globulin 2.8 Albumin/Globulin Ratio 1.4 TSH 1.23 12/06/18 12/06/18 12/07/18 21:44 21:44 00:37 WBC RBC Hgb Hct MCV MCH MCHC RDW Plt Count MPV Neut % (Auto) Lymph % (Auto) [place] % (Auto) Eos % (Auto) Baso % (Auto) Absolute Neuts (auto) Absolute Lymphs (auto) Absolute Monos (auto) Absolute Eos (auto) Absolute Basos (auto) Absolute Nucleated RBC Nucleated RBC % INR (Anticoag Therapy) APTT Sodium Potassium Chloride Carbon Dioxide Anion Gap BUN Creatinine Est GFR ( Amer) Est GFR (Non-Af Amer) BUN/Creatinine Ratio Glucose POC Glucose (mg/dL) Lactic Acid 2.6 H* Calcium Phosphorus Magnesium Total Bilirubin AST ALT Alkaline Phosphatase Troponin I 0.03 B-Natriuretic Peptide 373 H Total Protein Albumin Globulin Albumin/Globulin Ratio [facility] 12/07/18 12/07/18 12/07/18 00:39 05:56 07:14 WBC RBC Hgb Hct MCV MCH MCHC RDW Plt Count MPV Neut % (Auto) Lymph % (Auto) [place] % (Auto) Eos % (Auto) Baso % (Auto) Absolute Neuts (auto) Absolute Lymphs (auto) Absolute Monos (auto) Absolute Eos (auto) Absolute Basos (auto) Absolute Nucleated RBC Nucleated RBC % INR (Anticoag Therapy) APTT Sodium 137 Potassium 4.3 Chloride 105 Carbon Dioxide 26 Anion Gap 6 BUN 25 H Creatinine 0.88 Est GFR ( Amer) 100.3 Est GFR (Non-Af Amer) 82.9 BUN/Creatinine Ratio 28.4 H Glucose 126 H POC Glucose (mg/dL) 224 H 113 H Lactic Acid Calcium 8.8 Phosphorus 3.6 Magnesium 2.3 Total Bilirubin AST ALT Alkaline Phosphatase Troponin I 0.03 B-Natriuretic Peptide Total Protein Albumin Globulin Albumin/Globulin Ratio [facility] 12/07/18 12/07/18 12/07/18 09:37 11:55 15:20 WBC RBC Hgb Hct MCV MCH MCHC RDW Plt Count MPV Neut % (Auto) Lymph % (Auto) [place] % (Auto) Eos % (Auto) Baso % (Auto) Absolute Neuts (auto) Absolute Lymphs (auto) Absolute Monos (auto) Absolute Eos (auto) Absolute Basos (auto) Absolute Nucleated RBC Nucleated RBC % INR (Anticoag Therapy) APTT Sodium Potassium Chloride Carbon Dioxide Anion Gap BUN Creatinine Est GFR ( Amer) Est GFR (Non-Af Amer) BUN/Creatinine Ratio Glucose POC Glucose (mg/dL) 145 H 209 H Lactic Acid 1.5 Calcium Phosphorus Magnesium Total Bilirubin AST ALT Alkaline Phosphatase Troponin I B-Natriuretic Peptide Total Protein Albumin Globulin Albumin/Globulin Ratio TSH 12/07/18 12/07/18 16:25 16:37 WBC RBC Hgb Hct MCV MCH MCHC RDW Plt Count MPV Neut % (Auto) Lymph % (Auto) [place] % (Auto) Eos % (Auto) Baso % (Auto) Absolute Neuts (auto) Absolute Lymphs (auto) Absolute Monos (auto) Absolute Eos (auto) Absolute Basos (auto) Absolute Nucleated RBC Nucleated RBC % INR (Anticoag Therapy) APTT Sodium Potassium Chloride Carbon Dioxide Anion Gap BUN Creatinine Est GFR ( Amer) Est GFR (Non-Af Amer) BUN/Creatinine Ratio Glucose POC Glucose (mg/dL) 147 H Lactic Acid Calcium Phosphorus Magnesium 2.2 Total Bilirubin AST ALT Alkaline Phosphatase Troponin I 0.03 B-Natriuretic Peptide Total Protein Albumin Globulin Albumin/Globulin Ratio TSH Assess/Plan/Problems-Billing Assessment: 83 yr old male with pmh of SVT, pancreatitis, spinal stenosis, htn, dm, obestiy , and aortic stenosis; who presented to ED with sustain SVT and was cardioverted. - Patient Problems (1) SVT (supraventricular tachycardia) Comment: - Cardioverted in ED last night. Serial trops were wnl. - Had repeat episode this afternoon. Repeat serial trops ordereddue to left side /chest pain and SVT - Change Tropol XL 25 mg to Metoprolol 25 mg BID - Patient was referred to ablasion due to svt, but did not go to appointment. I discussed with patient and agrees to revisit topic with Darwin at follow up. (2) Diabetes Comment: - Metformin was held on admission due to lactic acidosis, which has resolved. - Cont glipizide and SS (3) Hypertension Comment: - Continue lisinopril and metoprolol. (4) DVT prophylaxis Comment: - Lovenox (5) Full code status Comment: Attending: Jackson Portillo
[2018-12-07] MEDS: Metoprolol Succinate XL TAB* 25 MG PO SCH (21:02)
[2018-12-08] MEDS: Enoxaparin(*) 40 MG/0.4 ML SYR SUBCUT SCH (00:35)
[2018-12-08] MEDS: NS 0.9% 1000 ML** 1,000 ML IV SCH (02:44)
[2018-12-08 07:02] LABS: BUN/Creatinine Ratio 25.7 (8-20); Calcium 8.8 mg/dL (8.6-10.3); EGFR African American 122.5 (>60); EGFR Non-African American 101.3 (>60); Magnesium 1.8 mg/dL (1.9-2.7); Potassium 4.3 mmol/L (3.5-5.0)
[2018-12-08 07:54] VITALS: BP 137/73
[2018-12-08] MEDS: Insulin LISPRO* 1 UNITS UNIT SUBCUT SCH (07:59)
[2018-12-08] MEDS ORDERED: Magnesium Sulfate 2 GM IV* 2 GM/50 ML BAG IVPB ONE (08:15)
[2018-12-08] MEDS ORDERED: Magnesium Oxide TAB* 400 MG PO SCH (09:00)
[2018-12-08] MEDS: Aspirin 81 mg CHEW TAB* 81 MG TAB.CHEW PO SCH (09:04)
[2018-12-08] MEDS: Cyanocobalamin TAB* 500 MCG PO SCH (09:04)
[2018-12-08] MEDS: Lisinopril TAB* 10 MG PO SCH (09:04)
[2018-12-08] MEDS: glipiZIDE TAB* 5 MG PO SCH (09:04)
[2018-12-08] MEDS: Metoprolol Succinate XL TAB* 25 MG PO SCH (09:04)
--- NOTE | 2018-12-08 21:48 | DS ---
AMENDED REPORT NOW INCLUDES COSIGNER DESIGNATION CC: Dr. Patience Rasmussen; Dr. Kiara Granados * DISCHARGE SUMMARY: DATE OF ADMISSION: 12/06/18 DATE OF DISCHARGE: 12/08/18 PRIMARY CARE PROVIDER: Dr. Patience Rasmussen. MAINTENANCE SERVICE SUPERVISOR: Dr. Kiara Granados. ATTENDING PHYSICIAN: Dr. Jackson Portillo MD * (dictated by Rebecca Maloney NP). PRIMARY DIAGNOSIS: 1. Paroxysmal supraventricular tachycardia. SECONDARY DIAGNOSES: 1. Diabetes mellitus type 2. 2. Hypertension. STUDIES WHILE IN THE HOSPITAL: 1. EKG on 12/06/18 shows supraventricular tachycardia with a rate of 149. 2. Chest x-ray on 12/06/18 reads as: In the current clinical setting, chest x- ray findings could be compatible with mild pulmonary vascular congestion. 3. EKG on 12/06/18 shows sinus arrhythmia with a rate of 94, QTc 495, left bundle branch block. 4. EKG on 12/07/18 shows normal sinus rhythm with a rate of 67, QTc 492, left bundle branch block. 5. Transthoracic echocardiogram on 12/07/18, reads as: There is normal left ventricular systolic function. The estimated ejection fraction is 50% to 55%. Global left ventricular wall motion and contractility are within normal limits. Mild concentric left ventricular hypertrophy is observed. Normal cardiac chamber sizes. Impaired diastolic relaxation. There is [id number] aortic stenosis. There is mild dilatation of the ascending aorta. Since the prior echocardiogram on 08/04/18, there is no significant change. 6. EKG on 12/07/18, shows supraventricular tachycardia with a rate of 125, left bundle branch block. 7. EKG on 12/07/18, shows normal sinus rhythm with a rate of 64, QTc 445, left bundle branch block. HISTORY OF PRESENT ILLNESS AND HOSPITAL COURSE: Mr. Barakat is an 83-year-old male with past medical history of hypertension, diabetes and aortic stenosis who presented to the emergency room on 12/06/18 with complaints of chest pain. Please see the history and physical by Dr. Lockhart for a complete summary of the events leading up to this hospitalization. In short, the patient reported feeling palpitations and associated chest, arm and neck discomfort beginning around 9 o'clock. I will note that the patient has a longstanding history of SVT and can typically self convert by drinking a glass of ice water, which he attempted to do that day, though he was not successful. He presented to the emergency room and was found to be in supraventricular tachycardia. The patient was cardioverted by the emergency room physician and was thereafter in normal sinus rhythm. The patient did have a negative troponin and there were no ischemic EKG changes though because of the concern for chest pain, the patient was admitted by the hospitalist service. The patient was noted to have some lactic acidosis though no sign of infection. This corrected with IV fluids. He was noted to have mild hypomagnesemia and was repleted with IV magnesium. The patient had an uneventful night and had imaging as noted above. On 12/07/18, the provider attempted to discharge the patient, although just prior to discharge, the patient reported dizziness and was noted to have a heart rate in the 130s to 150s. An EKG was obtained as noted above and the patient was noted to be again in SVT. He was able to self convert within 15 minutes. Because of this additional episode of SVT, the patient was kept another night to monitor. His metoprolol was changed from daily to b.i.d. dosing in an attempt to further control these SVT episodes. As of today, the patient reports feeling well. He is anxious to return home. He denies any further palpitations or chest pain. He has no shortness of breath or dizziness. Telemetry monitoring shows normal sinus rhythm and sinus arrhythmia, but no evidence of further SVT since yesterday. As noted above, the patient does normally self convert and is aware of multiple ways that he can attempt to self convert in the event that he does go into another episode. is stable for discharge today. Vital signs are as follows: Temperature 97.5, heart rate 68, respiratory rate 16, oxygen saturation 96% on room air, blood pressure 137/73. DISCHARGE MEDICATIONS: New medication: 1. Magnesium oxide 400 mg p.o. daily. Changed medication: 1. Metoprolol succinate 25 mg p.o. b.i.d. (previously was 25 mg daily). Continued medications: 1. Aspirin 81 mg p.o. daily. 2. Vitamin B12 500 mcg p.o. daily. 3. Glipizide 10 mg p.o. daily. 4. Lisinopril 10 mg p.o. daily. 5. Metformin 500 mg p.o. daily. DISCHARGE PLAN: Mr. Barakat will be discharged home. Activity will be as tolerated. Diet will be heart healthy. Medications are as noted above. The patient has been advised that he should start taking a magnesium supplement due to his hypomagnesemia noted while here in the hospital. The patient is somewhat hesitant to add another medication to his daily regimen and did ask for diet information so that he can incorporate foods that have high magnesium though he does understand that supplementation with medication would be the most reliable method of supplementation. As noted above, the patient's metoprolol has also been changed to b.i.d. dosing. He can continue his other usual medications. He will need to follow up with his primary care provider in the next month. He will need to follow up with Dr. Granados and has an appointment scheduled for 12/14/18 at 2:15 p.m. He has been advised to return to the emergency room or nearest hospital for any worsening of symptoms, shortness of breath, lightheadedness, dizziness, chest discomfort, high fevers, chills, night sweats, loss of consciousness, or any other worrisome signs or symptoms This is a summarized report of a complex medical history and hospital stay. For further details, please see the entire medical record. TIME SPENT: Approximately 40 minutes were spent on this discharge. REBECCA MALONEY, SOFIYA [id number]/[facility] #: [id number] [place]
== END 2018-12-08 11:36 | disposition home or self-care (01) ==
LOC: ED 21:08 → MEDTELE 23:47
PROVIDERS: ADMIT Internal Medicine; ATTEND Internal Medicine
DX: I47.1 Supraventricular tachycardia (principal); E11.9 Type 2 diabetes mellitus without complications; I10 Essential (primary) hypertension; Z79.82 Long term (current) use of aspirin; E83.42 Hypomagnesemia
CPT/HCPCS: 36415; 71045; 80048; 80053; 83605; 83735; 83880; 84100; 84443; 84484; 85025; 85610; 85730; 93005; 93306; 96365; 96372; 96375; 99285; A9270-GY; C8929; G0378; J1650; J2250; J3010; J3475